=== PATIENT | female | born 1940 | race Caucasian/White ===

== ENCOUNTER 2020-06-16 11:06 | Outpatient (CLI) | payer MEDICARE, SELFPAY ==
[2020-06-16 11:46] LABS: Phosphorus 2.6 mg/dL (2.5-4.5)
[2020-06-16 12:34] LABS: Calcium 10.1 mg/dL (8.5-10.5)
[2020-06-16 13:09] LABS: Parathyroid Hormone 398.2 pg/mL (15-65)
== END 2020-06-16 11:07 | disposition home or self-care (01) ==
PROVIDERS: PCP Family Medicine; Visit Provider Internal Medicine
DX: E21.3 Hyperparathyroidism, unspecified (principal); N18.32 Chronic kidney disease, stage 3b
CPT/HCPCS: 36415; 82310; 83970; 84100; 99204

== ENCOUNTER 2020-11-23 11:40 | Emergency (ER) | payer MEDICARE, SELFPAY ==
[2020-11-23 11:46] VITALS: BP 137/78; PULSE 87; RESP 18; TEMP 36.6; O2SAT 93; BMI 45.4
--- NOTE | 2020-11-23 12:11 | CT_ITS ---
WS: [id number] CT HEAD TECHNIQUE: Noncontrast CT of the head obtained from the skullbase to the vertex. CLINICAL INFORMATION: fall COMPARISON: None. DLP: 805.[address] scans at [facility] use at least one of these dose optimization techniques: automat ed exposure control; mA and/or kV adjustment per patient size (includes targeted exams where dose is matched to clinical indication); or iterative reconstruction. FINDINGS: No evidence of intracranial hemorrhage or mass effect. Ventricular system and basal cisterns are zayas nt. Moderate small vessel changes with moderate parenchymal volume loss. No extra-axial fluid collect ions. No evidence of mass or mass effect. Normal garza-white differentiation. Intracranial vascular ca lcification. Chronic lacunar infarcts in the caudate and bilateral basal ganglia. Paranasal sinuses and mastoid air cells are well aerated. .Normal visualized soft tissues. CT/CT head wo con* [id number] IMPRESSION: 1. No evidence of intracranial hemorrhage or mass effect. 2. Moderate small vessel changes. Moderate parenchymal volume loss. 3. No acute intracranial findings.
--- NOTE | 2020-11-23 12:11 | XR_ITS ---
WS: [id number] Exam: XR sacrum coccyx min 2V [id number] Date/Time of Exam: 11/23/2020 12:11 PM Reason For Exam: fall with tail bone pain No fracture or dislocation noted. Degenerative change of the SI joints. Advanced degenerative disc ch anges and spondylosis noted at L4-L5 , L5-S1 and L3-4. XR/XR sacrum coccyx min 2V [id number] IMPRESSION: 1. No sacrococcygeal fracture or dislocation. 2. Degenerative changes as detailed above.
--- NOTE | 2020-11-23 12:11 | W.ED.FALL ---
HPI - Fall General: Chief Complaint: Fall Stated Complaint: FALL LAST NIGHT Time Seen by Provider: 11/23/20 11:54 History of Present Illness: HPI Narrative: Patient is a 80-year-old female comes to the ED after having a fall. Fall occurred last night. Patient states she was only on the ground for couple minutes. She says she got up in the middle the night to go to the bathroom and she kind of lost her balance fell backwards landing on her tailbone region. Pain is rated as mild and she does not want any pain meds while here in the ED. She denies hitting her head or having any loss of consciousness. Denies any chest pain, abdominal pain, syncopal episode. Patient says she lives at home with one of her children that helps take care of her. Associated symptoms-after fall: Denies abdominal pain, chest pain, headache(s), hematuria or neck pain Review of Systems Narrative: Accidental fall at home Const: Denies: fever(s), chills or fatigue Eyes: Denies: change in vision or eye discomfort ENMT: Denies: throat pain, odynophagia, nasal discharge or nasal congestion Card: Denies: chest pain, palpitations, edema, swelling of feet/ankles, dyspnea on exertion or orthopnea Resp: Denies: dyspnea, productive cough or non-productive cough GI: Denies: abdominal pain, nausea, vomiting, diarrhea, constipation or hematochezia : Denies: flank pain, dysuria or hematuria Musc: Reports: back pain (tailbone pain); Denies: neck pain or extremity swelling Skin/Breast: Denies: rash or new lesions Neuro: Denies: headache(s), numbness in extremities or weakness in extremities PFSH ED PFSH: Medical History Chronic kidney disease Hx of cardiac pacemaker Hx of congestive heart failure Hx of essential hypertension Hx of gout Low back pain Obesity Family History Father Hypertension Mother Hypertension Brother Hypertension Sister Hypertension Social History Smoking and tobacco status: former smoker Alcohol intake: never Physical Exam Const: COMMON NORMALS: no acute distress, patient oriented x3 and alert GENERAL APPEARANCE: cooperative and comfortable NUTRITIONAL APPEARANCE: obese HENMT: COMMON NORMALS: normocephalic HEAD & SCALP: normocephalic MOUTH: Normal oral and palatal mucosa present THROAT: posterior oropharynx normal and uvula midline Neck/C-Spine: COMMON NORMALS: supple GENERAL: Yes normal visual inspection Resp: COMMON NORMALS: normal respiratory effort, No retractions, No use of accessory muscles and clear to auscultation bilaterally AUSCULTATION: clear to auscultation bilaterally Cardio: COMMON NORMALS: regular rate, regular rhythm, S1 normal heart sound present, S2 normal heart sound present, No gallops present (Cardio), No clicks present (Cardio), No murmurs present (Cardio) and Peripheral pulses 2+ throughout RATE: regular rate RHYTHM: regular rhythm HEART SOUNDS: S1 normal heart sound present and S2 normal heart sound present PERIPHERAL PULSES: Peripheral pulses 2+ throughout GI: COMMON NORMALS: Normal to inspection, nondistended, normoactive bowel sounds present, Soft to palpation, non-tender and no masses PALPATION: Yes Soft to palpation : COMMON NORMALS: Yes no CVA tenderness BLADDER/KIDNEY EXAM: Yes no CVA tenderness Back/Pelvis: COMMON NORMALS: no CVA tenderness Extremity: COMMON NORMALS: normal to inspection Neuro: COMMON NORMALS: patient oriented x3, CN's II-XII intact bilaterally, moves all extremities, no focal motor deficits and no sensory deficits noted SENSORIUM/ORIENTATION: Yes alert SENSORY EXAM: Yes extremities (intact) MOTOR EXAM: 5/5 motor strength present throughout Skin: GENERAL SKIN EXAM: dry skin Course Vital Signs: Vital signs: Vital Signs Temperature 97.8 F 11/23/20 11:46 Pulse Rate 65 11/23/20 13:29 Respiratory Rate 16 11/23/20 13:29 Blood Pressure 120/66 11/23/20 13:29 Pulse Oximetry 95 11/23/20 13:29 MDM - Fall MDM Narrative: Medical decision making narrative: Patient is a 80-year-old female who comes to the ED after having a fall. Patient says she got up last night to go to the bathroom and lost her balance and fell backwards. She denies any syncopal episode or loss of consciousness. Her main complaint is tailbone pain. Exam findings unremarkable. CT of head showed no acute findings. X-ray of sacrum and coccyx showed no acute fractures or dislocations. Patient was diagnosed with a fall and discharged home. She is told to follow-up with her PCP in 5 to 7 days for reevaluation. Return to ED precautions given. Patient agreed with plan. Imaging Data^: CT Head: Attestation: I personally reviewed and interpreted this imaging study as follows: Radiologist's impression: [address] [place] [address] CT Scan Report Signed Patient: Anya Powell Unit #: [id number] : 1940 Age/Sex: 80 / F ADM Date: 11/23/20 Loc: ER Room/Bed: Attending Dr: Ordering Provider/Ordering MD: Italo Liu Date of Service: 11/23/20 Procedure(s): CT head wo con* [id number] Accession Number(s): [id number] Report Number: [id number] WS: [id number] CT HEAD TECHNIQUE: Noncontrast CT of the head obtained from the skullbase to the vertex. CLINICAL INFORMATION: fall COMPARISON: None. DLP: 805.[address] scans at [facility] use at least one of these dose optimization techniques: automated exposure control; mA and/or kV adjustment per patient size (includes targeted exams where dose is matched to clinical indication); or iterative reconstruction. FINDINGS: No evidence of intracranial hemorrhage or mass effect. Ventricular system and basal cisterns are patent. Moderate small vessel changes with moderate parenchymal volume loss. No extra-axial fluid collections. No evidence of mass or mass effect. Normal garza-white differentiation. Intracranial vascular calcification. Chronic lacunar infarcts in the caudate and bilateral basal ganglia. Paranasal sinuses and mastoid air cells are well aerated. .Normal visualized soft tissues. CT/CT head wo con* [id number] IMPRESSION: 1. No evidence of intracranial hemorrhage or mass effect. 2. Moderate small vessel changes. Moderate parenchymal volume loss. 3. No acute intracranial findings. Dictated By: Rasheed Hernandez MD Signed By: Rasheed Hernandez MD Signed Date/Time: 11/23/20 1307 DD/ 1304 Other Xray: Attestation: I personally reviewed and interpreted this imaging study as follows: Radiologist's impression: [address] [address] XRay Report Signed Patient: Anya Powell Unit #: [id number] : 1940 Age/Sex: 80 / F ADM Date: 11/23/20 Loc: ER Room/Bed: Attending Dr: Ordering Provider/Ordering MD: Italo Liu Date of Service: 11/23/20 Procedure(s): XR sacrum coccyx min 2V 39959 Accession Number(s): [id number] Report Number: [id number] WS: [id number] Exam: XR sacrum coccyx min 2V [id number] Date/Time of Exam: 11/23/2020 12:11 PM Reason For Exam: fall with tail bone pain No fracture or dislocation noted. Degenerative change of the SI joints. Advanced degenerative disc changes and spondylosis noted at L4-L5 , L5-S1 and L3-4. XR/XR sacrum coccyx min 2V 55229 IMPRESSION: 1. No sacrococcygeal fracture or dislocation. 2. Degenerative changes as detailed above. Dictated By: Scott Ho DO Signed By: Scott Ho DO Signed Date/Time: 11/23/20 1257 DD/ 1253 Discharge Plan Discharge Patient Disposition: Home Clinical Impression: Fall as cause of accidental injury at home as place of occurrence Qualifiers: Encounter type: initial encounter Qualified Code(s): W19.XXXA - Unspecified fall, initial encounter Condition: Stable Prescriptions: No Action potassium chloride 20 mEq tablet,ER particles/crystals PO RF: 0 hydrochlorothiazide 25 mg tablet PO RF: 0 levothyroxine 25 mcg capsule 25 mcg PO DAILY RF: 0 atorvastatin 40 mg tablet 40 mg PO DAILY RF: 0 hydralazine 10 mg tablet 10 mg PO TID RF: 0 furosemide 40 mg tablet 40 mg PO BID RF: 0 carvedilol 25 mg tablet 25 mg PO BID RF: 0 allopurinol 100 mg tablet 200 mg PO DAILY RF: 0 aspirin [Adult Aspirin Regimen] 81 mg tablet,delayed release (DR/EC) 81 mg PO DAILY RF: 0 Discharge Orders: Discharge ED (Routine); Ordered 11/23/20 Ordered By: Italo Liu Referrals: Blanca Cantor MD [Primary Care Provider] - Discharge Diet: Regular Discharge Activity: Increase activity as tolerated Patient Instructions: Fall Prevention for Older Adults (ED), Fall Prevention (ED) Activity Restrictions/Additional Instructions: Follow-up with medical provider as directed in 5 to 7 days for reevaluation. Continue taking all home medications as previous prescribed. Return to the ER or your medical provider if condition worsens. Please read and understand discharge instructions. Thank you for choosing [facility] for your healthcare needs today. Please realize this is an emergency room and that we are providing you with a medical screening exam and this may not be complete and all inclusive of all the testing and or work up that you may need to determine your ailment or severity of your illness. It is very important that you follow up as instructed or that you return to the Emergency Department should you have concerns or if your condition changes or worsens in any way. Coding Level of Care Code ED Chassis Driver for Chg Fwd Exam Comprehensive
[2020-11-23 13:05] VITALS: BP 120/91; PULSE 104; RESP 16; O2SAT 94
[2020-11-23 13:29] VITALS: BP 120/66; PULSE 65; RESP 16; O2SAT 95
== END 2020-11-23 13:29 | disposition home or self-care (01) ==
PROVIDERS: Emergency Provider Physician Assistant; PCP Family Medicine
DX: M53.3 Sacrococcygeal disorders, not elsewhere classified (principal); I13.0 Hypertensive heart and chronic kidney disease with heart failure and stage 1 through stage 4 chronic kidney disease, or unspecified chronic kidney disease; N18.9 Chronic kidney disease, unspecified; I50.9 Heart failure, unspecified; E66.9 Obesity, unspecified; Z68.42 Body mass index [BMI] 45.0-49.9, adult; Z87.891 Personal history of nicotine dependence; Z95.0 Presence of cardiac pacemaker
CPT/HCPCS: 70450; 72220; 99282

== ENCOUNTER 2021-01-06 15:45 | Outpatient (CLI) | payer MEDICARE, SELFPAY ==
--- NOTE | 2021-01-06 15:45 | USCV_ITS ---
Anya Powell Age: 80 Gender: F : 1940 Exam Date: 01/06/2021 16:05 Ordering Phys: Christopher Chavez MD ([email or web address]) Technologist: Shara Brower Exam Location: [facility] Indication: history of CHF BP: / HR: 61 Rhythm: Sinus Technical Quality: Technically difficult study MEASUREMENTS (Male / Female) Normal Values 2D ECHO LV Diastolic Diameter PLAX 4.1 cm 4.2 - 5.9 / 3.9 - 5.3 cm LV Systolic Diameter PLAX 3.0 cm IVS Diastolic Thickness 1.4 cm 0.6 - 1.0 / 0.6 - 0.9 cm IVS Systolic Thickness 1.8 cm LVPW Diastolic Thickness 1.2 cm 0.6 - 1.0 / 0.6 - 0.9 cm LVPW Systolic Thickness 1.8 cm LVOT Diameter 2.0 cm LV Ejection Fraction 2D Teich 53.1 % LV Ejection Fraction MOD 2C 67.6 % LV Ejection Fraction 2C AL 67.1 % LA Diameter 3.9 cm LA Width 4.5 cm LA Height 5.3 cm RA Width 2.3 cm RA Height 4.5 cm Aorta at Sinotubular Diameter 2.9 cm DOPPLER AV Peak Velocity 260.3 cm/s LVOT Peak Velocity 72.0 cm/s AV Area Cont Eq vti 0.9 cm squared AV Area Cont Eq pk 0.9 cm squared MV Peak Velocity 136.0 cm/s MV Area PHT 3.1 cm squared Mitral E to A Ratio 0.6 MV E' Velocity 38.5 cm/s Mitral E to MV E' Ratio 12.6 Mitral E to LV E' Lateral Ratio 16.0 Mitral E to LV E' Septal Ratio 10.4 TR Peak Velocity 168.5 cm/s TR Peak Gradient 11.4 mmHg Right Atrial Pressure 3.0 mmHg Pulmonary Artery Systolic Pressu 14.4 mmHg PV Peak Velocity 86.0 cm/s RV Acceleration Time 0.1 s RV Ejection Time 0.3 s RV AcT/ET 0.3 FINDINGS Left Ventricle Normal left ventricular size and systolic function, EF 62 %. Mild left ventricular hypertrophy. Mild hypokinesia of the basal inferior wall segment Right Ventricle Catheter/pacemaker wire in the right ventricular cavity. Right Atrium Catheter/pacemaker wire in the right atrial cavity. Left Atrium Mildly increased left atrial size. Mitral Valve Moderate mitral annular calcification. Thickened mitral valve. Mild-moderate mitral valve regurgitation. Aortic Valve Thickened aortic valve. Mild aortic valve regurgitation. Mild to moderate aortic valve stenosis with a peak velocity of 2.6 m/s, peak gradient of 28 mmHg with a mean gradient of fourteen. Valve area is calculated to be 0.96 cm squared Tricuspid Valve Mild tricuspid valve regurgitation. Estimated pulmonary artery peak systolic pressure of 15 mmHg-could be an underestimation because of the poor Doppler signals Pulmonic Valve Structurally normal pulmonic valve without significant stenosis. There is no pulmonic regurgitation. Pericardium Trivial pericardial effusion. Aorta Normal ascending aorta dimension. CONCLUSIONS Normal left ventricular size and systolic function, EF 62 %. Mild left ventricular hypertrophy. Mild hypokinesia of the basal inferior wall segment. Mild to moderate aortic valve stenosis with a peak velocity of 2.6 m/s, peak gradient of 28 mmHg with a mean gradient of fourteen. Valve area is calculated to be 0.96 cm squared. Mild aortic valve regurgitation. Mild tricuspid valve regurgitation. Mildly increased left atrial size. Mild-moderate mitral valve regurgitation. Moderate mitral annular calcification. Pacemaker wire in the right atrium right ventricle Trivial pericardial effusion. No previous study is available for comparison. Dr Christopher Chavez MD [facility] (Electronically Signed) Final Date: 07 January 2021 08:51 S
== END 2021-01-06 15:46 | disposition home or self-care (01) ==
LOC: RAD 15:48
PROVIDERS: PCP Family Medicine; Visit Provider Internal Medicine Cardiovascular Disease
DX: I50.9 Heart failure, unspecified (principal); I08.3 Combined rheumatic disorders of mitral, aortic and tricuspid valves
CPT/HCPCS: 93306

== ENCOUNTER 2021-02-08 10:49 | Outpatient (CLI) | payer MEDICARE, SELFPAY ==
--- NOTE | 2021-02-08 11:58 | ECG_ITS ---
[facility] Test Date: 2021-02-08 Pat Name: Anya Powell Department: Room: Gender: Female Transportation Agent: : 1940 Requested By: Christopher Chavez Order Number: [id number] Alecia MD: Christopher Chavez M.D. Interpretive Statements NAME OF STUDY: LEXISCAN SESTAMIBI STRESS TEST INDICATION: Chest Pain, PROCEDURE: At the baseline, the EKG revealed 100% V paced rhythm. The baseline blood pressure was 156/87 mm Hg with a heart rate of 63 beats/min. Lexiscan was infused over a period of 20 seconds. A total of 0.4 milligrams of Lexiscan was infused. The stress phase was continued for a total of 5 minutes. Heart rate at the end of the stress phase was 69 with a blood pressure 128/60. The EKG at the peak infusion revealed no significant changes. Sestamibi was injected 20 seconds after the Lexiscan infusion. Blood pressure at the end of the recovery phase was 122/55 with a heart rate of 67 per minute. CONCLUSION: 1. EKG response to Lexiscan infusion is uninterpretable due to baseline changes 2. No LexiScan induced chest pain or cardiac arrhythmia 3. Normal blood pressure and heart rate response 4. Sestamibi/sestamibi perfusion scan pending; see separate report. Electronically Signed On 02-08-2021 19:46:23 CONSULTING SOFTWARE ENGINEER by Christopher Chavez M.D. [id number]
--- NOTE | 2021-02-08 11:59 | NMCV_ITS ---
NM lucy perf SPECT r/s* [id number] Anya Powell Age: 80 Gender: F : 1940 Exam Date: 02/08/2021 12:27 Ordering Phys: Christopher Chavez MD ([email or web address]) Technologist: MYRTLE Peters Exam Location: [facility] Indications: CHEST PAIN STRESS TEST Please see separate stress test report in [facility] for full findings IMAGE PROTOCOL Rest/Stress 1 Lexiscan Day Radiopharmaceutical Dose (mCi) Administration Site Administered by Rest: Tc-99m IV MYRTLE Hickman Sestamibi Stress:Tc-99m 32.8 IV MYRTLE Peters Sestamilaura Rest: 08-Feb-2021 60 Discovery 630 Stress: 08-Feb-2021 30 Discovery 630 0.4mg Lexiscan. Supine position only as patient was unable to lay prone. SPECT RESULTS Technical Quality: Excellent Raw Data Analysis: Normal Image Corrections: No attenuation or motion correction applied Summed Stress Score: 10 Summed Rest Score: 11 Summed Difference Score: 4 PERFUSION FINDINGS Myocardial perfusion may revealing moderate area of decreased tracer uptake in the basal, mid and apical inferior, mid inferolateral, apical lateral, apical anterior and LV apex. Significant reversibility was noted in the inferior and inferolateral regions. FUNCTIONAL RESULTS (calculated via Gated SPECT) Stress Image LV EF (%): 80 Stress EDV (mL):64 TID: 1 Stress ESV (mL):13 FUNCTIONAL FINDINGS: Segmental wall motion analysis revealing no gross wall motion normalities. IMPRESSIONS 1. Myocardial perfusion imaging revealing small to moderate area of reversible defect in the inferior and inferolateral region, suggestive of ischemia in the distribution of the right coronary artery/circumflex artery. Persistent decreased tracer uptake in the apical segments suggesting myocardial scarring versus attenuation artifacts. 2. Normal LV ejection fraction of 80%. 3. LV wall motion analysis revealing no gross wall motion abnormalities. 4. Normal LV volume. No similar previous studies are available for comparison Dr Christopher Chavez MD [facility] (Electronically Signed) Final Date: 09 February 2021 07:29 S
[2021-02-08 12:02] VITALS: BMI 49.1
[2021-02-08] MEDS: regadenoson 0.4 Mg/5 ml Syringe IVP (13:01)
[2021-02-08 13:28] VITALS: BP 125/55; PULSE 69
== END 2021-02-08 10:50 | disposition home or self-care (01) ==
LOC: CDL 10:50
PROVIDERS: PCP Family Medicine; Visit Provider Internal Medicine Cardiovascular Disease
DX: Z86.79 Personal history of other diseases of the circulatory system (principal); R06.02 Shortness of breath; R07.9 Chest pain, unspecified; R93.1 Abnormal findings on diagnostic imaging of heart and coronary circulation
CPT/HCPCS: 78452; 93017; A9500; J2785

== ENCOUNTER 2021-05-15 12:55 | Emergency (ER) | payer MEDICARE, SELFPAY ==
[2021-05-15 13:05] VITALS: BP 103/74; PULSE 70; RESP 14; TEMP 36.3; O2SAT 95; BMI 43.2
--- NOTE | 2021-05-15 13:06 | XRR_ITS ---
PROCEDURE INFORMATION: Exam: XR Right Hip Exam date and time: 05/15/2021 1:06 PM Age: 80 years old Clinical indication: Hip pain; Right hip TECHNIQUE: Imaging protocol: XR Right hip. Views: 2 or 3 views hip with pelvis when performed. COMPARISON: CR XR sacrum coccyx min 2V [id number] 11/23/2020 12:36 PM FINDINGS: Bones/joints: No fracture, dislocation or subluxation. No periosteal reaction or supsicious bone lesion. No significant osteoarthritis. Soft tissues: No gross soft tissue swelling. Vasculature: Phleboliths in the right pelvis. Atherosclerotic arterial calcifications are noted. XR/XR hip RT 2-3V wo/w pel* [id number] IMPRESSION: No acute fracture is seen.
--- NOTE | 2021-05-15 13:13 | XRR_ITS ---
PROCEDURE INFORMATION: Exam: XR Right Tibia and Fibula Exam date and time: 05/15/2021 1:13 PM Age: 80 years old Clinical indication: Pain; Lower leg; Right TECHNIQUE: Imaging protocol: XR Right tibia and fibula. Views: 2 views. COMPARISON: No relevant prior studies available. FINDINGS: Bones/joints: No fracture, dislocation or subluxation. No periosteal reaction or supsicious bone lesion. Plantar calcaneal spur. Soft tissues: The soft tissues are not well assessed. Vasculature: Atherosclerotic arterial calcifications are seen. XR/XR tibia fibula RT 2V [id number] IMPRESSION: No acute fracture is identified.
--- NOTE | 2021-05-15 13:13 | XRR_ITS ---
PROCEDURE INFORMATION: Exam: XR Lumbosacral Spine Exam date and time: 05/15/2021 1:13 PM Age: 80 years old Clinical indication: Low back pain TECHNIQUE: Imaging protocol: XR of the lumbosacral spine. Views: 2 or 3 views. COMPARISON: CR XR sacrum coccyx min 2V [id number] 11/23/2020 12:36 PM FINDINGS: Bones/joints: There is a mild rightward curvature of the thoracolumbar spine. There are grade 1 retrolistheses of L1, L2, L3 and L4. Moderate to severe degenerative disc disease is seen in the lumbar spine. There is mild wedging of the T10 and T11 vertebral bodies of indeterminate age. The sacroiliac joints are grossly symmetric. The sacrum is partially obscured by overlying bowel gas. Soft tissues: No gross soft tissue swelling. XR/XR lumbar spine 2-3V* [id number] IMPRESSION: 1. Moderate to severe degenerative disc disease is seen in the lumbar spine. 2. There is mild wedging of the T10 and T11 vertebral bodies of indeterminate age. 3. Consider MRI to further assess if clinically warranted.
--- NOTE | 2021-05-15 13:13 | XRR_ITS ---
PROCEDURE INFORMATION: Exam: XR Left Tibia and Fibula Exam date and time: 05/15/2021 1:13 PM Age: 80 years old Clinical indication: Left lower leg pain. TECHNIQUE: Imaging protocol: XR Left tibia and fibula. Views: 2 views. COMPARISON: No relevant prior studies available. FINDINGS: Bones/joints: No fracture, dislocation or subluxation. No periosteal reaction or supsicious bone lesion. Plantar calcaneal spur. Soft tissues: The soft tissues are not well assessed. Vasculature: Atherosclerotic arterial calcifications are seen. XR/XR tibia fibula LT 2V [id number] IMPRESSION: No acute fracture is identified.
[2021-05-15 13:26] VITALS: BP 103/74; PULSE 70; RESP 14; O2SAT 95
--- NOTE | 2021-05-15 13:55 | W.ED.EXTPRO ---
HPI - Extremity Problem General: Chief complaint: Extremity Problem,Nontraumatic Stated complaint: RIGHT HIP PAIN Time Seen by Provider: 05/15/21 13:06 PFSH ED PFSH: Medical History Chronic kidney disease Hx of cardiac pacemaker Hx of congestive heart failure Hx of essential hypertension Hx of gout Low back pain Obesity Family History Father Hypertension Mother Hypertension Brother Hypertension Sister Hypertension Social History Alcohol intake: never Course Vital Signs: Vital signs: Vital Signs Temperature 97.4 F L 05/15/21 13:05 Pulse Rate 70 05/15/21 13:26 Respiratory Rate 14 05/15/21 13:26 Blood Pressure 103/74 05/15/21 13:26 Pulse Oximetry 95 05/15/21 13:26 Discharge Plan Discharge Condition: Stable Prescriptions: No Action allopurinol 100 mg tablet 200 mg PO DAILY 0RF aspirin [Adult Aspirin Regimen] 81 mg tablet,delayed release (DR/EC) 81 mg PO DAILY Qty: 90 3RF atorvastatin 40 mg tablet 40 mg PO DAILY Qty: 90 3RF carvedilol 25 mg tablet 25 mg PO BID Qty: 180 3RF Rx Instructions: must administer with a meal/food furosemide 40 mg tablet 40 mg PO BID Qty: 180 3RF hydralazine 10 mg tablet 10 mg PO TID Qty: 270 3RF hydrochlorothiazide 25 mg tablet 25 mg PO DAILY Qty: 90 3RF potassium chloride 20 mEq tablet,ER particles/crystals 20 meq PO DAILY 0RF levothyroxine 25 mcg tablet 25 mcg PO DAILY Qty: 90 3RF Referrals: Blanca Cantor MD [Primary Care Provider] - Coding Level of Care Code ED Hot End Operator for Fransisco Delgadillo
--- NOTE | 2021-05-15 14:00 | W.ED.GENADLT ---
HPI - General Adult General: Chief complaint: Extremity Problem,Nontraumatic Stated complaint: RIGHT HIP PAIN Time Seen by Provider: 05/15/21 13:06 History of Present Illness: Patient is a 80-year-old female with a history of CKD, CHF, pacemaker, hypertension who presents emergency room with complaints of right hip pain. Patient denies any recent trauma at home. Patient woke up this morning with complaints of right lateral hip pain and bilateral tib-fib pain. Patient denies any fall, injury to the head, or pain elsewhere. No associated chest pain, shortness breath, palpitation or lightheadedness, abdominal pain, nausea vomiting, diarrhea/melenea/or hematochezia. Onset: unknown Duration:ongoing Location:home Severity:moderate Associated symptoms: Deny chest pain, dyspnea, nausea, rash, palpitations or vomiting Review of Systems Const: Denies: fever(s) or chills Eyes: Denies: change in vision ENMT: Denies: mouth pain Card: Denies: chest pain or palpitations Resp: Denies: dyspnea or non-productive cough GI: Denies: abdominal pain, nausea, vomiting or diarrhea : Denies: dysuria Musc: Reports: extremity pain (+L leg pain/+R leg pain, +R hip pain) Skin/Breast: Denies: rash or new lesions Neuro: Denies: weakness in extremities Psych: Reports: other (Normal mood) Mart/Lymph: Denies: easy bruising PFSH ED PFSH: Medical History Chronic kidney disease Hx of cardiac pacemaker Hx of congestive heart failure Hx of essential hypertension Hx of gout Low back pain Obesity Family History Father Hypertension Mother Hypertension Brother Hypertension Sister Hypertension Social History Alcohol intake: never Physical Exam Const: COMMON NORMALS: alert HENMT: COMMON NORMALS: atraumatic HEAD & SCALP: atraumatic MOUTH: moist mucous membranes not abnormal Eye: COMMON NORMALS: EOMs intact bilaterally and conjunctivae normal CONJUNCTIVA: Yes conjunctivae normal Neck/C-Spine: COMMON NORMALS: full ROM and supple Resp: COMMON NORMALS: normal respiratory effort and clear to auscultation bilaterally AUSCULTATION: clear to auscultation bilaterally Cardio: COMMON NORMALS: regular rate RATE: regular rate GI: COMMON NORMALS: Soft to palpation and non-tender PALPATION: Yes Soft to palpation Extremity: COMMON NORMALS: full ROM NARRATIVE EXTREMITY EXAM: + Intact range of motion of the right and left hip, mild tenderness palpation over the right lateral hip, bilateral proximal anterior tib-fib tenderness to palpation, knee range of motion bilaterally intact, cap refill less than 3 seconds in the toes bilaterally, neurovascular exam intact in the lower extremity Neuro: SENSORIUM/ORIENTATION: Yes alert MOTOR EXAM: No Abnormal motor strength present and Other motor observations present (no focal motor deficits) Psych: COMMON NORMALS: speech normal SPEECH: Yes normal speech MOOD & AFFECT: Yes euthymic mood Course Vital Signs: Vital signs: Vital Signs Temperature 97.4 F L 05/15/21 13:05 Pulse Rate 70 05/15/21 13:26 Respiratory Rate 14 05/15/21 13:26 Blood Pressure 103/74 05/15/21 13:26 Pulse Oximetry 95 05/15/21 13:26 MDM - General Adult Medical Decision Making 80-year-old female presenting to the emergency room atraumatic right hip pain and bilateral knee pain. On exam, patient has mild focal tenderness to palpation over the right hip and bilateral proximal anterior mcnulty. Patient has no neurovascular changes. Range of motion of the knees bilaterally and right hip intact. XRays are negative for any acute fractures. Ultrasound not show any signs of DVTs bilaterally. Patient no longer complaints of active pain. I have given patient follow up with our rn case management to be seen by our primary care provider for ongoing pain. Patient aware of a call from our rn case management to schedule for appointment(s) and verbalizes understanding of the importance of following up. Rx: Tylenol, lidocaine patch, and menthol PRN pain Disposition: Discharge. Patient/family counseled regarding diagnostic impression, treatment plan. Patient/family given ED strict return precautions to return for continuation, worsening, or development of new symptoms. Instructed to f/u w/ PCP regarding symptoms today. Patient/family verbalized understanding. Lab Data Radiology Impressions Hip/Pelvis X-Ray 05/15/21 13:06 IMPRESSION: No acute fracture is seen. Lumbar Spine X-Ray 05/15/21 13:13 IMPRESSION: 1. Moderate to severe degenerative disc disease is seen in the lumbar spine. 2. There is mild wedging of the T10 and T11 vertebral bodies of indeterminate age. 3. Consider MRI to further assess if clinically warranted. Tibia/Fibula X-Ray 05/15/21 13:13 IMPRESSION: No acute fracture is identified. Venous Duplex 05/15/21 14:01 IMPRESSION: No evidence of deep vein thrombosis. Imaging Data Other Imaging: Radiologist's impression: [address] [address] XRay Report Signed Patient: AndreAnya Collier Unit #: [id number] : 1940 Age/Sex: 80 / F ADM Date: 05/15/21 Loc: ER Room/Bed: Attending Dr: Ordering Provider/Ordering MD: Neha Hair MD Date of Service: 05/15/21 Procedure(s): XR tibia fibula LT 2V 65175 Accession Number(s): [id number] Report Number: [id number] PROCEDURE INFORMATION: Exam: XR Left Tibia and Fibula Exam date and time: 05/15/2021 1:13 PM Age: 80 years old Clinical indication: Left lower leg pain. TECHNIQUE: Imaging protocol: XR Left tibia and fibula. Views: 2 views. COMPARISON: No relevant prior studies available. FINDINGS: Bones/joints: No fracture, dislocation or subluxation. No periosteal reaction or supsicious bone lesion. Plantar calcaneal spur. Soft tissues: The soft tissues are not well assessed. Vasculature: Atherosclerotic arterial calcifications are seen. XR/XR tibia fibula LT 2V 44019 IMPRESSION: No acute fracture is identified. ? Dictated By: Keith Murillo Signed By: Keith Murillo Signed Date/Time: 05/15/21 1454 DD/ 1313 Anya Powell??80??F??1940 ? Allergy/Adv: Sulfa (Sulfonamide Antibiotics), [seafood] (More??) Close Tibia/Fibula X-Ray (Signed) Keith Murillo - 05/15/21 Tibia/Fibula X-Ray (Signed) Keith Murillo - 05/15/21 Lumbar Spine X-Ray (Signed) Keith Murillo - 05/15/21 Hip and Pelvis X-Ray (Signed) Keith Murillo - 05/15/21 Myocardial Perfusion Scan Nuc Med (Signed) Sheila Chavezjudefayprincess - 02/08/21 Sacrum and Coccyx X-Ray (Signed) Soctt Ho - 11/23/[address] (Signed) Rasheed Hernandez - 11/23/20 Launch?Image [employer] [address] [place] [address] XRay Report Signed Patient: Anya Powell Unit #: [id number] : 1940 Age/Sex: 80 / F ADM Date: 05/15/21 Loc: ER Room/Bed: Attending Dr: Ordering Provider/Ordering MD: Neha Hair MD Date of Service: 05/15/21 Procedure(s): XR tibia fibula RT 2V 35030 Accession Number(s): [id number] Report Number: [id number] PROCEDURE INFORMATION: Exam: XR Right Tibia and Fibula Exam date and time: 05/15/2021 1:13 PM Age: 80 years old Clinical indication: Pain; Lower leg; Right TECHNIQUE: Imaging protocol: XR Right tibia and fibula. Views: 2 views. COMPARISON: No relevant prior studies available. FINDINGS: Bones/joints: No fracture, dislocation or subluxation. No periosteal reaction or supsicious bone lesion. Plantar calcaneal spur. Soft tissues: The soft tissues are not well assessed. Vasculature: Atherosclerotic arterial calcifications are seen. XR/XR tibia fibula RT 2V 81290 IMPRESSION: No acute fracture is identified. ? Dictated By: Keith Murillo Signed By: Keith Murillo Signed Date/Time: 05/15/215 DD/ 1313 [employer] [address] [place] [address]. [place] [address] XRay Report Signed Patient: Anya Powell Unit #: [id number] : 1940 Age/Sex: 80 / F ADM Date: 05/15/21 Loc: ER Room/Bed: Attending Dr: Ordering Provider/Ordering MD: Neha Hair MD Date of Service: 05/15/21 Procedure(s): XR lumbar spine 2-3V* 67491 Accession Number(s): [id number] Report Number: [id number] PROCEDURE INFORMATION: Exam: XR Lumbosacral Spine Exam date and time: 05/15/2021 1:13 PM Age: 80 years old Clinical indication: Low back pain TECHNIQUE: Imaging protocol: XR of the lumbosacral spine. Views: 2 or 3 views. COMPARISON: CR XR sacrum coccyx min 2V 52586 11/23/2020 12:36 PM FINDINGS: Bones/joints: There is a mild rightward curvature of the thoracolumbar spine. There are grade 1 retrolistheses of L1, L2, L3 and L4. Moderate to severe degenerative disc disease is seen in the lumbar spine. There is mild wedging of the T10 and T11 vertebral bodies of indeterminate age. The sacroiliac joints are grossly symmetric. The sacrum is partially obscured by overlying bowel gas. Soft tissues:? No gross soft tissue swelling. XR/XR lumbar spine 2-3V* 45342 IMPRESSION: 1. Moderate to severe degenerative disc disease is seen in the lumbar spine. 2. There is mild wedging of the T10 and T11 vertebral bodies of indeterminate age. 3. Consider MRI to further assess if clinically warranted. ? Dictated By: Keith Murillo Signed By: Keith Murillo Signed Date/Time: 05/15/21 1455 DD/ [address] [address] XRay Report Signed Patient: Anya Powell Unit #: [id number] : 1940 Age/Sex: 80 / F ADM Date: 05/15/21 Loc: ER Room/Bed: Attending Dr: Ordering Provider/Ordering MD: Neha Hair MD Date of Service: 05/15/21 Procedure(s): XR hip RT 2-3V wo/w pel* 90000 Accession Number(s): [id number] Report Number: [id number] PROCEDURE INFORMATION: Exam: XR Right Hip Exam date and time: 05/15/2021 1:06 PM Age: 80 years old Clinical indication: Hip pain; Right hip TECHNIQUE: Imaging protocol: XR Right hip. Views: 2 or 3 views hip with pelvis when performed. COMPARISON: CR XR sacrum coccyx min 2V 14180 11/23/2020 12:36 PM FINDINGS: Bones/joints: No fracture, dislocation or subluxation. No periosteal reaction or supsicious bone lesion. No significant osteoarthritis. Soft tissues: No gross soft tissue swelling. Vasculature: Phleboliths in the right pelvis. Atherosclerotic arterial calcifications are noted. XR/XR hip RT 2-3V wo/w pel* 34685 IMPRESSION: No acute fracture is seen. ? Dictated By: Keith Murillo Signed By: Keith Murillo Signed Date/Time: 05/15/21 1454 DD/ [address] [address] Ultrasound Report Signed Patient: Anya Powell Unit #: [id number] : 1940 Age/Sex: 80 / F ADM Date: 05/15/21 Loc: ER Room/Bed: Attending Dr: Ordering Provider/Ordering MD: Neha Hair MD Date of Service: 05/15/21 Procedure(s): [place] [id number] Accession Number(s): [id number] Report Number: [id number] PROCEDURE INFORMATION: Exam: US Duplex Lower Extremity Veins, Bilateral Exam date and time: 05/15/2021 2:01 PM Age: 80 years old Clinical indication: Pain; Leg, lower; Bilateral; Additional info: Eval for dvts TECHNIQUE: Imaging protocol: Real-time Duplex ultrasound of the bilateral extremities with 2-D garza scale, color Doppler flow and spectral waveform analysis with image documentation. Complete exam focused on the bilateral lower extremity veins. COMPARISON: CR (LOW EXM, ) 05/15/2021 2:01 PM FINDINGS: Right deep veins: Unremarkable. The common femoral, femoral, proximal profunda femoral and popliteal veins are patent without thrombus. Normal Doppler waveforms. Normal compressibility and/or augmentation response.? Right superficial veins: Saphenofemoral junction is patent without thrombus. Left deep veins: Unremarkable. The common femoral, femoral, proximal profunda femoral and popliteal veins are patent without thrombus. Normal Doppler waveforms. Normal compressibility and/or augmentation response.? Left superficial veins: Saphenofemoral junction is patent without thrombus. Soft tissues: Unremarkable. US/[place] [id number] IMPRESSION: No evidence of deep vein thrombosis. ? Dictated By: Marcus Hester MD Signed By: Marcus Hester MD Signed Date/Time: 05/15/21 1552 DD/ 1401 Discharge Plan Discharge Patient Disposition: Home Clinical Impression: Acute hip pain, Leg pain Condition: Stable Prescriptions: New acetaminophen 500 mg tablet 500 mg PO Q6H PRN (Reason: pain) 5 Days Qty: 20 0RF lidocaine 5 % adhesive patch,medicated 1 patch topical DAILY PRN (Reason: pain) 30 Days Qty: 30 0RF Rx Instructions: leave on most painful area for up to 12 hrs Biofreeze (menthol) 5 % gel 1 ea topical BID PRN (Reason: pain) 10 Days Qty: 1 0RF No Action allopurinol 100 mg tablet 200 mg PO DAILY 0RF aspirin [Adult Aspirin Regimen] 81 mg tablet,delayed release (DR/EC) 81 mg PO DAILY Qty: 90 3RF atorvastatin 40 mg tablet 40 mg PO DAILY Qty: 90 3RF carvedilol 25 mg tablet 25 mg PO BID Qty: 180 3RF Rx Instructions: must administer with a meal/food furosemide 40 mg tablet 40 mg PO BID Qty: 180 3RF hydralazine 10 mg tablet 10 mg PO TID Qty: 270 3RF hydrochlorothiazide 25 mg tablet 25 mg PO DAILY Qty: 90 3RF potassium chloride 20 mEq tablet,ER particles/crystals 20 meq PO DAILY 0RF levothyroxine 25 mcg tablet 25 mcg PO DAILY Qty: 90 3RF Discharge Orders: Discharge ED (Routine); Ordered 05/15/21 Ordered By: Neha Hair Referrals: Blanca Cantor MD [Primary Care Provider] - Discharge Diet: Advance as tolerated Discharge Activity: Increase activity as tolerated Patient Instructions: Leg Pain (ED) Activity Restrictions/Additional Instructions: Please follow-up with your primary care provider for further evaluation nation of your leg and hip pain. Come back to the emergency room you have any worsening pain, numbness, difficulty moving the legs, tingling sensation, fever/chill, redness on the legs, or any new or concerning complaints Coding Level of Care Code ED [employer] for [place] Fwd Exam Comprehensive
[2021-05-15] MEDS: acetaminophen 500 mg Tablet 1000 MG PO (14:35)
[2021-05-15 17:21] VITALS: RESP 17
--- NOTE | 2021-05-29 09:52 | DCPLANNER ---
late entry - lining caser had message to speak with patient about a primary care physician, lining caser unable to speak with patient.
== END 2021-05-15 17:26 | disposition home or self-care (01) ==
PROVIDERS: Emergency Provider Emergency Medicine; PCP Family Medicine
DX: M25.551 Pain in right hip (principal); M79.604 Pain in right leg; Z79.82 Long term (current) use of aspirin; Z95.0 Presence of cardiac pacemaker; I11.0 Hypertensive heart disease with heart failure; I50.9 Heart failure, unspecified
CPT/HCPCS: 72100; 73502; 73590; 93970; 99283

== ENCOUNTER 2021-06-13 12:26 | Emergency (ER) | payer MEDICARE, SELFPAY ==
[2021-06-13 12:26] VITALS: BP 115/72; PULSE 88; RESP 20; TEMP 36.6; O2SAT 94; BMI 47.6
--- NOTE | 2021-06-13 12:30 | ED_ITS ---
HPI - General Adult General: Chief complaint: Weakness Stated complaint: BILATERAL HIP PAIN Time Seen by Provider: 06/13/21 12:29 History of Present Illness: Ms Powell is a 80-year-old lady with complex past medical history including CHF, CKD who presents emergency department due to hip pain. She additionally endorses generalized malaise. She apparently was visiting a friend here in town and start developing pain which brought her to the emergency department. Pain is aching and sharp and mildly worse with movement. No distal CMS changes. Patient denies trauma. Overall intensity symptoms is mild to moderate. Course has persisted. No other specific changes in health, exacerbating, or relieving factors. Onset (ago): hour(s) Location: pelvis Severity: moderate Quality: aching and sharp Review of Systems General: Reports: 10 or more systems reviewed and unremarkable except in HPI and below PFSH ED PFSH: Medical History Chronic kidney disease Hx of cardiac pacemaker Hx of congestive heart failure Hx of essential hypertension Hx of gout Low back pain Obesity Family History Father Hypertension Mother Hypertension Brother Hypertension Sister Hypertension Social History Alcohol intake: never Physical Exam Const: COMMON NORMALS: alert GENERAL APPEARANCE: cooperative and well developed NUTRITIONAL APPEARANCE: obese OTHER: Patient is a somewhat poor historian HENMT: COMMON NORMALS: normocephalic and atraumatic HEAD & SCALP: n ormocephalic and atraumatic Eye: COMMON NORMALS: conjunctivae normal CONJUNCTIVA: Yes conjunctivae normal SCLERA: sclerae normal Neck/C-Spine: COMMON NORMALS: supple GENERAL: Yes trachea midline Resp: COMMON NORMALS: normal respiratory effort EFFORT & INSPECTION: Yes able to speak in complete sentences AUSCULTATION: diminished lung sounds Cardio: COMMON NORMALS: regular rate and regular rhythm RATE: regular rate RHYTHM: regular rhythm GI: COMMON NORMALS: Soft to palpation PALPATION: Yes Soft to palpation and No Tenderness to palpation present (GI) PERCUSSION: normal to percussion Extremity: NARRATIVE EXTREMITY EXAM: Mild tenderness with range of motion of right hip GENERAL: No edema Neuro: COMMON NORMALS: moves all extremities SENSORIUM/ORIENTATION: Yes alert and No Orientation impaired Psych: COMMON NORMALS: mental status grossly normal and Normal thought process present THOUGHT PROCESS: Normal thought process present Skin: NARRATIVE SKIN EXAM: Moisture related irritation of left posterior knee. Course ED course: - Patient was seen and evaluated by me at bedside - Patient placed on cardiac monitors, IV access obtained - Initial evaluation notable for exam as above - Labs notable for mild leukocytosis. Metabolic panel with mild evidence of dehydration, hypokalemia. Oral replenishment ordered. Patient does endorse a history of CKD though is unsure of exact baseline creatinine. Delta troponin is negative. Urinalysis not concerning for urinary tract infection. - Imaging notable for no acute finding on hip x-rays - Upon serial reexamination after treatment the patient was improved - Based on patient history, evaluation, labs, and imaging as interpreted the most likely cause of the patient's condition is unclear, she does likely have cellulitis as well as moisture related fungal infection of the posterior left knee. I did discuss other findings including elevated creatinine and need for repeat, patient comfortable with outpatient follow-up. - The results of ED evaluation were discussed with the patient including prescriptions and/or symptomatic cares (if applicable) including appropriate and responsible use, followup plan, and return precautions. The patient verbalized understanding and felt safe for discharge. - Patient discharged in satisfactory condition. Note: Click bubbles or prepopulated mata in note writing are used for assistance with data collection and billing and are inherently more limited than narrative and other text portions of this note. Please use narrative for additional clinical history and defer to narrative/free test for any case of contradictory information. If information appears in only free text or click bubble it should be considered present or absent as reported. Please contact note communications writer for clarifications of clinical information or contradictory information. MDM is a brief summary, contradictory or erroneous seeming information should be clarified and full note should be reviewed. Vital Signs: Vital signs: Vital Signs Temperature 97.8 F 06/13/21 12:26 Pulse Rate 70 06/13/21 18:19 Respiratory Rate 18 06/13/21 18:19 Blood Pressure 142/80 06/13/21 18:19 Pulse Oximetry 96 06/13/21 18:19 MDM - General Adult Medical Decision Making 80-year-old lady presenting with bilateral hip pain. ED evaluation notable for cellulitis on the posterior left knee region. Hypokalemia replenished with oral potassium, laboratory studies including elevated creatinine discussed with peg vizcarra. She is comfortable with discharge for outpatient follow-up. Medical Records I reviewed the patient's medical records. Lab Data I reviewed the patient's lab results. : 06/13/21 15:02 06/13/21 15:02 Radiology Impressions Hip/Pelvis X-Ray 06/13/21 13:26 IMPRESSION: No acute findings. Laboratory Results WBC 13.8 10^3/uL (4.0-10.0) H 06/13/21 15:02 RBC 4.42 10^6/uL (4.1-5.3) 06/13/21 15:02 Hgb 13.3 g/dL (11.5-15.3) 06/13/21 15: Hct 40.1 % (37.0-47.0) 06/13/21 15: MCV 90.7 fl (81-99) 06/13/21 15:02 MCH 30.1 pg (28.0-34.0) 06/13/21 15: MCHC 33.2 g/dL (30.0-36.0) 06/13/21 15: RDW 13.1 % (12.1-15.1) 06/13/21 15: Plt Count 242 10^3/cmm (130-400) 06/13/21 15:02 MPV 9.4 fL (7.4-10.4) 06/13/21 15:02 Neut % (Auto) 75.4 % 06/13/21 15:02 Lymph % (Auto) 13.9 % 06/13/21 15:02 [place] % (Auto) 8.9 % 06/13/21 15:02 Eos % (Auto) 1.2 % 06/13/21 15:02 Baso % (Auto) 0.4 % 06/13/21 15:02 Neut # (Auto) 10.44 10^3/uL (1.8-7.7) H 06/13/21 15:02 Lymph # (Auto) 1.9 10^3/uL (0.8-4.8) 06/13/21 15:02 [place] # (Auto) 1.2 10^3/uL (0.2-0.9) H 06/13/21 15:02 Eos # (Auto) 0.2 10^3/uL (0.0-0.8) 06/13/21 15:02 Baso # (Auto) 0.1 10^3/uL (0.0-0.1) 06/13/21 15:02 Nucleated RBC % (auto) 0 % 06/13/21 15:02 Nucleated RBCs # 0.0 /100WBC 06/13/21 15:02 Sodium 138 mmol/L (136-145) 06/13/21 15:02 Potassium 3.3 mmol/L (3.5-5.1) L 06/13/21 15:02 Chloride 96 mmol/L (98-107) L 06/13/21 15:02 Carbon Dioxide 26 mmol/L (22-29) 06/13/21 15:02 Anion Gap 19.3 (5-19) H 06/13/21 15:02 BUN 69 mg/dL (8-23) H 06/13/21 15:02 Creatinine 1.8 mg/dL (0.5-0.9) H 06/13/21 15:02 GFR Calculation Not Reportable 06/13/21 15:02 Glucose 113 mg/dL (65-115) 06/13/21 15:02 Calculated Osmolality 307 mOsm/kg (285-295) H 06/13/21 15:02 Calcium 11.9 mg/dL (8.5-10.5) H 06/13/21 15:02 Total Bilirubin 0.6 mg/dL (0.15-1.2) 06/13/21 15:02 AST 9 U/L (0-32) 06/13/21 15:02 ALT 10 U/L (0-33) 06/13/21 15:02 Alkaline Phosphatase 147 IU/L (35-105) H 06/13/21 15:02 Troponin T Baseline 36 ng/L (0-10) H 06/13/21 15:02 Troponin T 120 Minute 31.49 ng/L (0-10) H 06/13/21 17:00 Delta Troponin T -4.51 ABS# (0-10) L 06/13/21 17:00 NT-Pro-B Natriuret Pep 825 pg/mL (0-450) H 06/13/21 15:02 Total Protein 8.2 g/dL (6.6-8.7) 06/13/21 15: Albumin 3.7 g/dL (3.5-5.2) 06/13/21 15: Globulin 4.5 g/dL (1.3-4.6) 06/13/21 15: TSH 1.21 uIU/mL (0.27-4.20) 06/13/21 15:02 Urine Color Yellow (Yellow) 06/13/21 15:26 Urine Appearance Sl hazy (CLEAR) 06/13/21 15:26 Urine pH 6 (5-7) 06/13/21 15:26 Ur Specific [place] 1.010 (1.005-1.030) 06/13/21 15:26 Urine Protein Neg (Negative) 06/13/21 15: Urine Glucose (UA) Norm (Normal) 06/13/21 15:26 Urine Ketones Negative (Negative) 06/13/21 15:26 Urine Blood Neg (Negative) 06/13/21 15:26 Urine Nitrate Negative (Negative) 06/13/21 15:26 Urine Bilirubin Neg (Negative) 06/13/21 15:26 Urine Urobilinogen Norm mg/dL (Negative) 06/13/21 15:26 Ur Leukocyte Esterase Negative (Negative) 06/13/21 15:26 Urine RBC None /hpf (0-2) 06/13/21 15:26 Urine WBC None /hpf (0-5) 06/13/21 15:26 Ur Squamous Epith Cells 15-25 /hpf (0-5) H 06/13/21 15:26 Amorphous Sediment Not Reportable 06/13/21 15:26 Urine Bacteria Trace /hpf (NONE) 06/13/21 15:26 Urine Mucus Trace /hpf 06/13/21 15:26 EKG Data EKG 1: I personally reviewed and interpreted this EKG as follows: EKG interpretation date: 06/13/21 EKG interpretation time: 15:54 Interpretation: Twelve-lead EKG shows a regular rhythm at a rate of 77. HI interval 138, QRS duration 193, QTc 476. Left axis deviation. Interpretation: Atrial and ventricular paced rhythm. Computer generated interpretation: Hip/Pelvis X-Ray 06/13/21 13:26 IMPRESSION: No acute findings. Discharge Plan Discharge Patient Disposition: Home Clinical Impression: Cellulitis, Weakness, Creatinine elevation, Leukocytosis, Hypokalemia Condition: Stable Prescriptions: New doxycycline hyclate 100 mg tablet 100 mg PO Q12H 10 Days Qty: 20 0RF nystatin 100,000 unit/gram powder 1 applic topical BID 10 Days Qty: 30 0RF No Action aspirin [Adult Aspirin Regimen] 81 mg tablet,delayed release (DR/EC) 81 mg PO DAILY Qty: 90 3RF furosemide 40 mg tablet 40 mg PO BID Qty: 180 3RF potassium chloride 20 mEq tablet,ER particles/crystals 20 meq PO DAILY 0RF levothyroxine 25 mcg tablet 25 mcg PO DAILY Qty: 90 3RF atorvastatin 40 mg tablet 40 mg PO DAILY Qty: 100 3RF hydralazine 10 mg tablet 10 mg PO TID Qty: 300 3RF carvedilol 25 mg tablet 25 mg PO BID Qty: 200 3RF Rx Instructions: must administer with a meal/food hydrochlorothiazide 25 mg tablet 25 mg PO DAILY Qty: 100 3RF Discharge Orders: Discharge ED (Routine); Ordered 06/13/21 Ordered By: Jah Hughes Other Ambulatory Orders: DME: Wheelchair (Order) Location: None Selected Ordered By: Jah Hughes Referrals: Blanca Cantor MD [Primary Care Provider] - Discharge Diet: Usual diet Discharge Activity: Resume usual activity Patient Instructions: Antifungals (On the skin) (Anti-Fungal Powder, Antifungal,..., Chronic Kidney Disease (ED), Cellulitis (ED), Hip Pain (ED) Activity Restrictions/Additional Instructions: Thank you for visiting the emergency department. You were seen and evaluated f or hip pain as well as generalized weakness. The exact cause of your symptoms is unclear. You do appear to have cellulitis on top of a moisture related/fungal infection behind your left knee. You be given a prescription for topical antifungal and also antibiotics. As discussed, your creatinine is elevated however I am unsure of the exact baseline. Please have repeat labs drawn in 1 week. I will message our field nurse case manager for helping establish with primary care. Please follow-up with a primary care provider. Please return to the emergency department for worsening symptoms or anything else that you are concerned about and feel needs emergency department evaluation. Coding Level of Care Code ED Post Closer for Fransisco Fwjose Exam Comprehensive
--- NOTE | 2021-06-13 13:26 | XRR_ITS ---
PROCEDURE INFORMATION: Exam: XR Right Hip Exam date and time: 06/13/2021 1:26 PM Age: 80 years old Clinical indication: Hip pain; Right hip TECHNIQUE: Imaging protocol: XR Right hip. Views: 2 or 3 views hip with pelvis when performed. COMPARISON: CR (PELVIS, ) 05/15/2021 1:47 PM FINDINGS: Bones/joints: Unremarkable. No acute fracture. Soft tissues: Unremarkable. XR/XR hip RT 2-3V wo/w pel* [id number] IMPRESSION: No acute findings.
--- NOTE | 2021-06-13 14:39 | ECG_ITS ---
[facility] Test Date: 2021-06-13 Pat Name: Anya Powell Department: Room: Gender: Female Upward Bound Director: : 1940 Requested By: Jah Hughes Order Number: [id number] Alecia MD: Hieu Anne M.D. Measurements Intervals [place] Rate: 77 P: 140 NH: 138 QRS: -90 QRSD: 193 T: 81 QT: 445 QTc: 504 Interpretive Statements ELECTRONIC ATRIAL PACEMAKER ELECTRONIC VENTRICULAR PACEMAKER Compared to ECG 06/13/2021 12:56:05 No significant changes Electronically Signed On 06-13-2021 15:50:32 CDT by Hieu Anne M.D. [id number]
[2021-06-13 15:07] LABS: Basophils # 0.1 10^3/uL (0.0-0.1); Basophils % 0.4 %; Eosinophils # 0.2 10^3/uL (0.0-0.8); Eosinophils % 1.2 %; Hematocrit 40.1 % (37.0-47.0); Hemoglobin 13.3 g/dL (11.5-15.3); Lymphocytes # 1.9 10^3/uL (0.8-4.8); Lymphocytes % 13.9 %; Mean Corpuscular HGB Conc 33.2 g/dL (30.0-36.0); Mean Corpuscular Hemoglobin 30.1 pg (28.0-34.0); Mean Corpuscular Volume 90.7 fl (81-99); Mean Platelet Volume 9.4 fL (7.4-10.4); Monocytes # 1.2 10^3/uL (0.2-0.9); Monocytes % 8.9 %; Neutrophils # 10.44 10^3/uL (1.8-7.7); Neutrophils % 75.4 %; Nucleated Red Blood Cells % 0 %; Platelet Count 242 10^3/cmm (130-400); Red Blood Count 4.42 10^6/uL (4.1-5.3); Red Cell Distribution Width 13.1 % (12.1-15.1); White Blood Count 13.8 10^3/uL (4.0-10.0)
[2021-06-13 15:33] LABS: Troponin(5th) Baseline 36 ng/L (0-10)
[2021-06-13 15:39] LABS: Alanine Aminotransferase 10 U/L (0-33); Albumin Level 3.7 g/dL (3.5-5.2); Alkaline Phosphatase 147 IU/L (35-105); Anion Gap 19.3 (5-19); Aspartate Amino Transferase 9 U/L (0-32); Blood Urea Nitrogen 69 mg/dL (8-23); Calcium 11.9 mg/dL (8.5-10.5); Carbon Dioxide 26 mmol/L (22-29); Chloride 96 mmol/L (98-107); Creatinine Clr Calc Pharmacy 39.9237; Globulin 4.5 g/dL (1.3-4.6); Glucose 113 mg/dL (65-115); NT Pro B Type Natriuretic Pept 825 pg/mL (0-450); Osmolality Calculated 307 mOsm/kg (285-295); Potassium 3.3 mmol/L (3.5-5.1); Sodium 138 mmol/L (136-145); Thyroid Stimulating Hormone 1.21 uIU/mL (0.27-4.20); Total Bilirubin 0.6 mg/dL (0.15-1.2); Total Protein 8.2 g/dL (6.6-8.7)
[2021-06-13 15:49] VITALS: BP 122/54; PULSE 71; O2SAT 96
[2021-06-13 16:30] LABS: Bilirubin Urine Neg (Negative); Blood Urine Neg (Negative); Glucose Urine UA Norm (Normal); Ketones Urine Negative (Negative); Leukocyte Esterase Urine Negative (Negative); Nitrate Urine Negative (Negative); Protein Urine Neg (Negative); Urine Appearance SL Hazy (CLEAR); Urine Color Yellow (Yellow); Urobilinogen Urine Norm (Negative); pH Urine 6 (5-7)
[2021-06-13 16:32] LABS: Bacteria Urine TRACE /hpf; Mucus Urine TRACE /hpf; Squamous Epithelial Cell Urine 15-25 /hpf (0-5)
[2021-06-13 16:33] LABS: Add Urine Culture? No
[2021-06-13] MEDS: potassium chloride ER 20 mEq Tablet 40 MEQ PO (17:13)
[2021-06-13 17:18] VITALS: BP 154/102; PULSE 78; RESP 14; O2SAT 96
[2021-06-13 17:36] LABS: Troponin 5 2HR 31.49 ng/L (0-10)
[2021-06-13 17:41] LABS: Troponin 5 2HR Delta -4.51 ABS# (0-10)
[2021-06-13 18:19] VITALS: BP 142/80; PULSE 70; RESP 18; O2SAT 96
--- NOTE | 2021-06-13 18:39 | ECG_ITS ---
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 Measurements Intervals [place] Rate: 67 P: 176 NE: 146 QRS: -90 QRSD: 190 T: 76 QT: 466 QTc: 493 Interpretive Statements ELECTRONIC ATRIAL PACEMAKER ELECTRONIC VENTRICULAR PACEMAKER ABNORMAL RHYTHM ECG No previous ECG available for comparison Electronically Signed On 06-13-2021 15:51:19 CDT by Hieu Anne M.D. [id number]
--- NOTE | 2021-06-23 12:46 | DCPLANNER ---
manager long term care had message to speak with patient about getting established with a primary care physician. manager long term care unable to speak with patient or leave a voicemail at this time.
== END 2021-06-13 18:28 | disposition home or self-care (01) ==
PROVIDERS: Emergency Provider Emergency Medicine; PCP Family Medicine
DX: D72.829 Elevated white blood cell count, unspecified (principal); E87.6 Hypokalemia; R74.8 Abnormal levels of other serum enzymes; R53.1 Weakness; L03.116 Cellulitis of left lower limb; Z79.82 Long term (current) use of aspirin; Z95.0 Presence of cardiac pacemaker; I11.0 Hypertensive heart disease with heart failure; I50.9 Heart failure, unspecified
CPT/HCPCS: 73502; 80053; 81001; 83880; 84443; 84484; 85025; 93005; 99283

== ENCOUNTER 2021-07-02 11:16 | Inpatient (IN) | payer MEDICARE, SELFPAY ==
[2021-07-02 11:18] VITALS: BP 111/83; PULSE 85; RESP 18; TEMP 36.2; O2SAT 96; BMI 60.5
--- NOTE | 2021-07-02 11:23 | W.ED.ABDPA2 ---
HPI - Abdominal Pain General: Chief Complaint: Abdominal Pain Stated Complaint: N/V/D/ ABDOMINAL PAIN Time Seen by Provider: 07/02/21 11:23 History of Present Illness: Ms Powell is a 80-year-old lady with complex past medical history of hypertension, hyperlipidemia, CKD, CHF, aortic valve stenosis who presents to the emergency department due to abdominal pain. She reports symptom onset subacute last night without known specific provoking factors. It was midabdominal with radiation towards the right. She denies associated nausea, vomiting, changes in bowel habits. She did have a bowel movement prior to coming to the emergency department which was normal for her. She otherwise denies signs of systemic illness. Intensity symptoms was moderate. She has difficulty articulating the quality. Course is now improved though only recently. No other specific changes in health, exacerbating, or alleviating factors identified. No history of abdominal surgeries. Onset (ago): hour(s) Pain Consistency: constant Location: Periumbilical, RUQ and RLQ Severity: moderate Migration to: no migration Exacerbating factors: nothing Relieving factors: nothing Review of Systems General: Reports: 10 or more systems reviewed and unremarkable except in HPI and below PFSH ED PFSH: Medical History Aortic valve stenosis Chronic kidney disease Hx of cardiac pacemaker Hx of congestive heart failure Hx of essential hypertension Hx of gout Low back pain Obesity Regional wall motion abnormality of heart Family History Father Hypertension Mother Hypertension Brother Hypertension Sister Hypertension Social History Alcohol intake: never Physical Exam Const: COMMON NORMALS: alert GENERAL APPEARANCE: cooperative, well developed and ill appearing (Chronically); not in distress HENMT: COMMON NORMALS: normocephalic and atraumatic HEAD & SCALP: normocephalic and atraumatic THROAT: posterior oropharynx normal Eye: COMMON NORMALS: conjunctivae normal CONJUNCTIVA: Yes conjunctivae normal SCLERA: sclerae normal Neck/C-Spine: COMMON NORMALS: supple GENERAL: Yes trachea midline Resp: COMMON NORMALS: normal respiratory effort and clear to auscultation bilaterally EFFORT & INSPECTION: Yes able to speak in complete sentences AUSCULTATION: clear to auscultation bilaterally Cardio: COMMON NORMALS: regular rate and regular rhythm RATE: regular rate RHYTHM: regular rhythm GI: COMMON NORMALS: Soft to palpation PALPATION: Yes Soft to palpation, Yes Tenderness to palpation present (GI), No Guarding due to palpation present (GI) and No Rigid due to palpation PERCUSSION: normal to percussion Extremity: GENERAL: Yes normal exam except as noted and No edema Neuro: COMMON NORMALS: moves all extremities SENSORIUM/ORIENTATION: Yes alert and No Orientation impaired OTHER: Chronic disconjugate gaze Psych: COMMON NORMALS: mental status grossly normal and Normal thought process present THOUGHT PROCESS: Normal thought process present Course ED course: - Patient was seen and evaluated by me at bedside - Patient placed on cardiac monitors, IV access obtained - Initial evaluation notable for exam as above - Labs personally interpreted by me. EKG performed at 1151, 1358, 1741 personally reviewed by me and demonstrate paced rhythm. No STEMI. - Fluids given - Labs notable for mild leukocytosis, normal hemoglobin. Metabolic panel with mild evidence of dehydration, there is YUNG compared to prior. Delta troponin is elevated of unclear etiology at 6 hours. Urinalysis not concerning for urinary tract infection given squamous epithelial contamination. -Aspirin given given NSTEMI - Imaging notable for negative head CT. CT abdomen pelvis notable for very mild pericolonic inflammation perhaps reflecting diverticulitis. - Cipro and Flagyl given for colitis. - Upon serial reexamination after treatment the patient was mildly improved - Based on patient history, evaluation, and testing as interpreted the most likely cause of the patient's condition is YUNG, colitis, and NSTEMI - The results of ED evaluation were discussed with the patient including plan for admission due to requirement for level of care not available if discharged to prevent significant worsening/deterioration. - Admitting service was contacted and Dr Reagan with the hospitalist service agreed to admit the patient - Patient was admitted without further deterioration or significant events. Note: Click bubbles or prepopulated mata in note writing are used for assistance with data collection and billing and are inherently more limited than narrative and other text portions of this note. Please use narrative for additional clinical history and defer to narrative/free test for any case of contradictory information. If information appears in only free text or click bubble it should be considered present or absent as reported. Please contact note assembly instructions writer for clarifications of clinical information or contradictory information. MDM is a brief summary, contradictory or erroneous seeming information should be clarified and full note should be reviewed. Vital Signs: Vital signs: Vital Signs Temperature 98 F 07/08/21 08:00 Pulse Rate 72 07/08/21 08:43 Respiratory Rate 18 07/08/21 08:43 Blood Pressure 97/55 07/08/21 08:00 Pulse Oximetry 98 07/08/21 08:43 MDM - Abdominal Pain Medical Decision Making 80-year-old lady with complex past medical history presenting with abdominal pain. Patient found to have perhaps early diverticulitis, YUNG, and NSTEMI likely secondary to underlying YUNG and illness. Admitted for further management. Medical Records I reviewed the patient's medical records. Lab Data I reviewed the patient's lab results. : 07/07/21 09:10 07/07/21 09:10 Labs/Radiology: Radiology Impressions Abdomen/Pelvis CT 07/02/21 11:40 IMPRESSION: 1. Moderate diverticulosis involving the distal colon. There are a few areas of very mild pericolonic inflammation which may be related to early acute or chronic inflammation. Very early acute diverticulitis in the distal colon not excluded. 2. Cholelithiasis without acute cholecystitis. 3. Cardiomegaly. 4. Normal appendix. 5. Widened SI joints with erosions. Consider sacroiliitis causes such as 1psoriatic arthritis. 6. Atrophic kidneys with bilateral low-attenuation masses which are probably cysts but cannot be further characterized on this unenhanced exam. Head CT 07/02/21 19:02 IMPRESSION: 1. No acute intracranial abnormality. 2. Moderate diffuse cerebral atrophy and sequela of chronic small vessel ischemic disease. Pelvis Ultrasound 07/06/21 08:50 IMPRESSION: 1. Abnormal endometrium. Thickened endometrium with a few scattered cystic areas. Endometrial neoplasm needs to be considered as an possible etiology. Recommend hysteroscopy and direct visualization for further evaluate if necessary. 2. Enlarged heterogeneous uterus. 3. Neither ovary identified. Laboratory Results WBC 11.5 10^3/uL (4.0-10.0) H 07/02/21 10:48 RBC 5.01 10^6/uL (4.1-5.3) 07/02/21 10:48 Hgb 14.8 g/dL (11.5-15.3) 07/02/21 10:48 Hct 46.0 % (37.0-47.0) 07/02/21 10:48 MCV 91.8 fl (81-99) 07/02/21 10:48 MCH 29.5 pg (28.0-34.0) 07/02/21 10:48 MCHC 32.2 g/dL (30.0-36.0) 07/02/21 10:48 RDW 13.9 % (12.1-15.1) 07/02/21 10:48 Plt Count 274 10^3/cmm (130-400) 07/02/21 10:48 MPV 10.8 fL (7.4-10.4) H 07/02/21 10:48 Neut % (Auto) 66.2 % 07/02/21 10:48 Lymph % (Auto) 20.4 % 07/02/21 10:48 Tripp % (Auto) 11.3 % 07/02/21 10:48 Eos % (Auto) 1.0 % 07/02/21 10:48 Baso % (Auto) 0.8 % 07/02/21 10:48 Neut # (Auto) 7.64 10^3/uL (1.8-7.7) 07/02/21 10:48 Lymph # (Auto) 2.4 10^3/uL (0.8-4.8) 07/02/21 10:48 Tripp # (Auto) 1.3 10^3/uL (0.2-0.9) H 07/02/21 10:48 Eos # (Auto) 0.1 10^3/uL (0.0-0.8) 07/02/21 10:48 Baso # (Auto) 0.1 10^3/uL (0.0-0.1) 07/02/21 10:48 Nucleated RBC % (auto) 0 % 07/02/21 10:48 Nucleated RBCs # 0.0 /100WBC 07/02/21 10:48 Sodium 142 mmol/L (136-145) 07/02/21 10:48 Potassium 3.6 mmol/L (3.5-5.1) 07/02/21 10:48 Chloride 95 mmol/L (98-107) L 07/02/21 10:48 Carbon Dioxide 27 mmol/L (22-29) 07/02/21 10:48 Anion Gap 23.6 (5-19) H 07/02/21 10:48 BUN 125 mg/dL (8-23) H* D 07/02/21 10:48 Creatinine 3.3 mg/dL (0.5-0.9) H 07/02/21 10:48 GFR Calculation Not Reportable 07/02/21 10:48 Glucose 119 mg/dL (65-115) H 07/02/21 10:48 Calculated Osmolality 335 mOsm/kg (285-295) H 07/02/21 10:48 Calcium 12.2 mg/dL (8.5-10.5) H 07/02/21 10:48 Total Bilirubin 0.6 mg/dL (0.15-1.2) 07/02/21 10:48 AST 23 U/L (0-32) 07/02/21 10:48 ALT 21 U/L (0-33) 07/02/21 10:48 Alkaline Phosphatase 135 IU/L (35-105) H 07/02/21 10:48 Troponin T Baseline 65 ng/L (0-10) H 07/02/21 10:48 Troponin T 120 Minute 66.64 ng/L (0-10) H 07/02/21 12:55 Delta Troponin T 1.64 ABS# (0-10) 07/02/21 12:55 Troponin T Hi Sens 6Hr 79.92 ng/L (0-10) H 07/02/21 16:50 Troponin T Hi Sens 6Hr Delta 14.92 ng/L (0-12) H* 07/02/21 16:50 Total Protein 6.8 g/dL (6.6-8.7) 07/02/21 10:48 Albumin 3.8 g/dL (3.5-5.2) 07/02/21 10:48 Globulin 3.0 g/dL (1.3-4.6) 07/02/21 10:48 Lipase 97 U/L (13-60) H 07/02/21 10:48 Vitamin B12 978 pg/mL (232-1245) 07/02/21 16:50 TSH 1.70 uIU/mL (0.27-4.20) 07/02/21 16:50 Urine Color Yellow (Yellow) 07/02/21 14:20 Urine Appearance Hazy (CLEAR) A 07/02/21 14:20 Urine pH 5 (5-7) 07/02/21 14:[address] 1.020 (1.005-1.030) 07/02/21 14:20 Urine Protein Neg (Negative) 07/02/21 14:20 Urine Glucose (UA) Norm (Normal) 07/02/21 14:20 Urine Ketones Negative (Negative) 07/02/21 14:20 Urine Blood Neg (Negative) 07/02/21 14:20 Urine Nitrate Negative (Negative) 07/02/21 14:20 Urine Bilirubin Neg (Negative) 07/02/21 14:20 Urine Urobilinogen Neg mg/dL (Negative) 07/02/21 14:20 Ur Leukocyte Esterase Negative (Negative) 07/02/21 14:20 Urine RBC Rare /hpf (0-2) 07/02/21 14:20 Urine WBC Rare /hpf (0-5) 07/02/21 14:20 Ur Squamous Epith Cells 5-10 /hpf (0-5) H 07/02/21 14:20 Amorphous Sediment Not Reportable 07/02/21 14:20 Urine Bacteria Trace /hpf (NONE) 07/02/21 14:20 Urine Mucus 2+ /hpf 07/02/21 14:20 Discharge Plan Discharge Patient Disposition: Placed in Observation Admit Provider: oRc Reagan Clinical Impression: Acute kidney injury superimposed on chronic kidney disease, Colitis, Acute non-ST elevation myocardial infarction (NSTEMI) Discharge Diet: Diabetic Coding Level of Care Code ED Field Account Manager for Chg Fwd Exam Comprehensive
--- NOTE | 2021-07-02 11:40 | CT_ITS ---
WS: [id number] CT ABDOMEN AND PELVIS NONCONTRAST HISTORY: mid abdominal pain TECHNIQUE: Imaging performed through the abdomen and pelvis. Coronal and sagittal reformats are submi tted. All CT scans at [facility] use at least one of these dose optimization techniques: auto mated exposure control; mA and/or kV adjustment per patient size (includes targeted exams where dose is matched to clinical indication); or iterative reconstruction. DLP: 1664.28 mGy.cm COMPARISON: None available. Lower thorax: Lung bases are clear. Moderate enlargement of the heart. Pacer wires are noted in the h eart. Liver: Normal size liver. No mass or bile duct dilatation. Gallbladder: Normally distended gallbladder with numerous stones in the lumen. No bile duct dilatatio n appreciated on this unenhanced study. Pancreas: Normal size and attenuation. Normal pancreatic duct. No pancreatitis or mass. Spleen: Normal. Adrenal glands: Normal. No mass. Right kidney: Mild diffuse cortical thinning and atrophy with scattered low-attenuation nodule which cannot be further characterized. Left kidney: Mild atrophy with low attenuation nodules. No obstruction. Aorta: Moderate to severe atherosclerosis abdominal aorta. No aneurysm. Atherosclerosis continues int o the common iliac arteries. Small pseudoaneurysm or dissection is calcified along the LEFT lateral i nfrarenal aorta. This is not acute. No free fluid, intraperitoneal air or significant lymphadenopathy. GI tract: Nondistended stomach. No small bowel obstruction. No colon obstruction. Normal appendix. Nu merous diverticula in the distal colon. There is some very mild inflammatory changes surrounding the descending colon no free fluid. No adenopathy. Abdominal wall: Negative. No hernia. Pelvis: Uterus appears slightly elongated. Urinary bladder is well distended. No pelvic mass. Focal c alcification in the RIGHT adnexa is probably related to the ovary. Osseous structures: Advanced degenerative disc disease in the lumbar spine. No acute fractures. Widen ing and erosion of the SI joints bilaterally, RIGHT greater than LEFT. CT/CT abdomen pelvis wo con [id number] IMPRESSION: 1. Moderate diverticulosis involving the distal colon. There are a few areas o f very mild pericolonic inflammation which may be related to early acute or chr onic inflammation. Very early acute diverticulitis in the distal colon not excl uded. 2. Cholelithiasis without acute cholecystitis. 3. Cardiomegaly. 4. Normal appendix. 5. Widened SI joints with erosions. Consider sacroiliitis causes such as 1psor iatic arthritis. 6. Atrophic kidneys with bilateral low-attenuation masses which are probably c ysts but cannot be further characterized on this unenhanced exam.
--- NOTE | 2021-07-02 11:43 | ECG_ITS ---
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 Measurements Intervals [place] Rate: 66 P: [place]: QRS: 270 QRSD: 189 T: 84 QT: 484 QTc: 507 Interpretive Statements ELECTRONIC VENTRICULAR PACEMAKER ABNORMAL RHYTHM ECG Compared to ECG 06/13/2021 15:44:07 Atrial-paced complex(es) or rhythm no longer present Electronically Signed On 07-02-2021 13:40:37 CDT by Christopher Chavez M.D. [id number]
[2021-07-02 11:49] LABS: Basophils # 0.1 10^3/uL (0.0-0.1); Basophils % 0.8 %; Eosinophils # 0.1 10^3/uL (0.0-0.8); Hemoglobin 14.8 g/dL (11.5-15.3); Lymphocytes # 2.4 10^3/uL (0.8-4.8); Lymphocytes % 20.4 %; Mean Corpuscular HGB Conc 32.2 g/dL (30.0-36.0); Mean Corpuscular Hemoglobin 29.5 pg (28.0-34.0); Mean Corpuscular Volume 91.8 fl (81-99); Mean Platelet Volume 10.8 fL (7.4-10.4); Monocytes # 1.3 10^3/uL (0.2-0.9); Monocytes % 11.3 %; Neutrophils # 7.64 10^3/uL (1.8-7.7); Neutrophils % 66.2 %; Nucleated Red Blood Cells % 0 %; Platelet Count 274 10^3/cmm (130-400); Red Blood Count 5.01 10^6/uL (4.1-5.3); Red Cell Distribution Width 13.9 % (12.1-15.1); White Blood Count 11.5 10^3/uL (4.0-10.0)
[2021-07-02 12:01] LABS: Alanine Aminotransferase 21 U/L (0-33); Albumin Level 3.8 g/dL (3.5-5.2); Alkaline Phosphatase 135 IU/L (35-105); Anion Gap 23.6 (5-19); Aspartate Amino Transferase 23 U/L (0-32); Calcium 12.2 mg/dL (8.5-10.5); Carbon Dioxide 27 mmol/L (22-29); Chloride 95 mmol/L (98-107); Glucose 119 mg/dL (65-115); Lipase 97 U/L (13-60); Potassium 3.6 mmol/L (3.5-5.1); Sodium 142 mmol/L (136-145); Total Bilirubin 0.6 mg/dL (0.15-1.2); Total Protein 6.8 g/dL (6.6-8.7)
[2021-07-02 12:02] LABS: Troponin(5th) Baseline 65 ng/L (0-10)
[2021-07-02 12:07] LABS: Osmolality Calculated 335 mOsm/kg (285-295)
[2021-07-02 12:08] LABS: Blood Urea Nitrogen 125 mg/dL (8-23)
[2021-07-02 13:23] VITALS: BP 137/87; PULSE 61; RESP 16; O2SAT 95
[2021-07-02 13:23] LABS: Troponin 5 2HR 66.64 ng/L (0-10)
[2021-07-02 13:26] LABS: Troponin 5 2HR Delta 1.64 ABS# (0-10)
--- NOTE | 2021-07-02 13:43 | ECG_ITS ---
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 Measurements Intervals [place] Rate: 69 P: [place]: QRS: -89 QRSD: 196 T: 89 QT: 489 QTc: 526 Interpretive Statements ELECTRONIC VENTRICULAR PACEMAKER ABNORMAL RHYTHM ECG Compared to ECG 07/02/2021 11:51:49 No significant changes Electronically Signed On 07-02-2021 13:59:46 CDT by Christopher Chavez M.D. [email or web address] centerC [id number]
[2021-07-02 14:56] LABS: Add Urine Microscopic? YES; Bilirubin Urine Neg (Negative); Blood Urine Neg (Negative); Glucose Urine UA Norm (Normal); Ketones Urine Negative (Negative); Leukocyte Esterase Urine Negative (Negative); Nitrate Urine Negative (Negative); Protein Urine Neg (Negative); Urine Appearance Hazy (CLEAR); Urine Color Yellow (Yellow); Urobilinogen Urine Neg (Negative); pH Urine 5 (5-7)
[2021-07-02 14:57] LABS: Add Urine Culture? No; Bacteria Urine TRACE /hpf; Mucus Urine 2+ /hpf; RBC Urine RARE /hpf (0-2); WBC Urine RARE /hpf (0-5)
[2021-07-02 15:00] VITALS: BP 132/79; PULSE 88; RESP 20; O2SAT 96
[2021-07-02 16:28] VITALS: BP 130/76; PULSE 66; RESP 18; O2SAT 98
[2021-07-02 17:14] LABS: Troponin 5 6HR 79.92 ng/L (0-10)
--- NOTE | 2021-07-02 17:15 | PC.NURSE ---
Pt incontinent. Pt cleaned up with new sheets and a depend. Pt appears to be bleeding from vagina. Dr. Hughes notified.
[2021-07-02 17:17] LABS: Troponin 5 6HR Delta 14.92 ng/L (0-12)
[2021-07-02 17:30] VITALS: BP 111/67; PULSE 80; RESP 18; O2SAT 97
[2021-07-02] MEDS: aspirin 81 mg Chew Tablet 324 MG PO (17:40)
[2021-07-02] MEDS: sodium chloride 0.9% 1,000 ML 150 ML IV (17:40)
[2021-07-02] MEDS: cefTRIAXone 1,000 MG in sodium chloride 0.9% (plus) 50 ML 100 MG IV (17:40)
--- NOTE | 2021-07-02 17:43 | ECG_ITS ---
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 Measurements Intervals [place] Rate: 64 P: [place]: QRS: -89 QRSD: 189 T: 88 QT: 494 QTc: 512 Interpretive Statements ELECTRONIC VENTRICULAR PACEMAKER ABNORMAL RHYTHM ECG Compared to ECG 07/02/2021 13:54:57 No significant changes Electronically Signed On 07-03-2021 11:36:24 CDT by Ruben Johnson M.D. [id number]
[2021-07-02] MEDS: metroNIDAZOLE IV 500 MG/100 ML PREMIX 100 MG IV (18:27)
--- NOTE | 2021-07-02 18:47 | PM.HP ---
Providers/Chief Complaint Primary Care Provider: Blanca Cantor MD Chief Complaint: N/V/D/ ABDOMINAL PAIN History of Present Illness Anya Powell is a 80 year old female post having that she is not sure about why she was sent to the hospital. I called her daughter to get the report. Daughter stating that she moved in 2 years ago and she is not sure about her previous medical history other than that that she has a pacemaker. Daughter is stating that for last 6 months she has been declining gradually, she has been suffering from memory loss, sometimes the house she wants to know where the bathroom is, lately she has been just staying in her couch and would defecate and urinate there. She is losing motivation to get up. She is mostly watching television in the TV lounge. She has not complained of any chest pain shortness of breath, fever or diarrhea. Lately she is complaining of abdominal pain. She has suffered from recurrent falls as well, her daughter and son-in-law was helping her out for most of the time in order to motivate her to ambulate. She still debilitated and deconditioned now they have to use a wheelchair to assist her. Her brother is suffering from dementia. Daughter stating that she does not have any living will however should be treated as full code. In the ER diagnostics showed dehydration, acute on chronic kidney disease, I have requested CT head, B12, TSH, urinalysis, started Zosyn for colitis Review of Systems General: Reports: ROS unobtainable due to medical condition (Hypoactive delirium) Medications/Allergies Home Medications Medication Instructions Recorded Confirmed Last Taken Type aspirin 81 mg tablet,delayed 81 mg PO DAILY #90 tab 03/04/21 07/02/21 07/02/21 Rx release (Adult Aspirin Regimen) furosemide 40 mg tablet 40 mg PO BID #180 tab 03/04/21 07/02/21 07/02/21 Rx potassium chloride 20 mEq 20 meq PO DAILY tab 03/04/21 07/02/21 07/02/21 History tablet,extended release(part/cryst) levothyroxine 25 mcg tablet 25 mcg PO DAILY #90 tab 03/05/21 07/02/21 07/02/21 Rx atorvastatin 40 mg tablet 40 mg PO DAILY #100 tab 05/17/21 07/02/21 07/02/21 Rx carvedilol 25 mg tablet 25 mg PO BID #200 tab 05/17/21 07/02/21 07/02/21 Rx hydralazine 10 mg tablet 10 mg PO TID #300 tab 05/17/21 07/02/21 07/02/21 Rx hydrochlorothiazide 25 mg tablet 25 mg PO DAILY #100 tab 05/17/21 07/02/21 07/02/21 Rx Allergies Allergy/AdvReac Type Severity Reaction Status Date / Time Sulfa (Sulfonamide Allergy unknown Verified 07/02/21 12:14 Antibiotics) seafood Allergy unknown Uncoded 02/10/21 09:53 PFSH Acute PFSH: Medical History Aortic valve stenosis Chronic kidney disease Hx of cardiac pacemaker Hx of congestive heart failure Hx of essential hypertension Hx of gout Low back pain Obesity Regional wall motion abnormality of heart Family History Father Hypertension Mother Hypertension Brother Hypertension Sister Hypertension Social History Alcohol intake: never Vitals/I&O/Wt Last Vital Signs Temp 97.1 F L 07/02/21 11:18 Pulse 80 07/02/21 17:30 Resp 18 07/02/21 17:30 BP 111/67 07/02/21 17:30 Pulse Ox 97 07/02/21 17:30 Weight last 48 hrs Weight 127.006 kg Physical Exam Narrative: Pleasant cooperative female She is not sure why she is in the hospital Able to follow commands Able to answer simple questions Squint noted I am not able to appreciate focal deficits She is moving all of her extremities Looks dehydrated Wrinkled skin Dry mucous membranes Abdomen is soft and nondistended, with obesity Saturating well on room air Hemodynamically stable Data : 07/02/21 10:48 07/02/21 10:48 A&P Assessment and plan (1) Acute kidney injury superimposed on chronic kidney disease: Status: Acute (2) Colitis: Status: Acute Plan Hypoactive delirium with possible underlying dementia She has been suffering from memory loss Personality change Losing motivation to get up and walk around Multiple falls We will check B12, TSH Urinalysis CT head She has been diagnosed with colitis without sepsis I will keep her on IV fluids Start antibiotics She is full code Cardiac consistent carb diet PT evaluation Daughter is asking for [facility] psych placement We will update casework manager in the morning For now for her delirium we will try to find out reversible causes, but my suspicion is high for dementia, family history positive Attestations Medical Necessity Statement*: Considering delirium and underlying possible dementia she will need work-up and will need assistance for appropriate disposition, I am anticipating she will spend more than 2 midnights in the hospital Time Spent in Patient Care: 40mins Coding Level of Care Code Acute Strategic Account Executive for [place] Fwd Diagnoses Acute kidney injury superimposed on chronic kidney disease N17.9; N18.9 Colitis K52.9
--- NOTE | 2021-07-02 19:02 | CTR_ITS ---
PROCEDURE INFORMATION: Exam: CT Head Without Contrast Exam date and time: 07/02/2021 7:26 PM Age: 80 years old Clinical indication: Altered mental status/memory loss; Confusion or disorientation; Patient HX: HX of dementia w worsening AMS TECHNIQUE: Imaging protocol: Computed tomography of the head without contrast. Radiation optimization: All CT scans at this facility use at least one of these dose optimization techniques: automated exposure control; mA and/or kV adjustment per patient size (includes targeted exams where dose is matched to clinical indication); or iterative reconstruction. COMPARISON: CT head wo con* [id number] 11/23/2020 12:52 PM RADIATION DOSE METRICS: Total DLP (mGy-cm): 771.06 FINDINGS: Brain: No hemorrhage. Moderate diffuse cerebral atrophy and sequela of chronic small vessel ischemic disease. No mass effect. Cerebral ventricles: No ventriculomegaly. Paranasal sinuses: Visualized sinuses are unremarkable. No fluid levels. Mastoid air cells: Visualized mastoid air cells are well aerated. Bones/joints: Unremarkable. No acute fracture. Soft tissues: Unremarkable. CT/CT head wo con* [id number] IMPRESSION: 1. No acute intracranial abnormality. 2. Moderate diffuse cerebral atrophy and sequela of chronic small vessel ischemic disease.
[2021-07-02 19:47] LABS: Vitamin B12 978 pg/mL (232-1245)
[2021-07-02 20:00] VITALS: BP 124/67; PULSE 76; RESP 18; O2SAT 96
[2021-07-02 21:47] VITALS: BMI 60.5
[2021-07-02] MEDS: hyDRALAzine 10 mg Tablet PO (22:39)
[2021-07-02] MEDS: sodium chloride 0.9% 1,000 ML 75 ML IV (22:40)
[2021-07-02] MEDS: piperacillin-tazobactam 3.375 GM in sodium chloride 0.9% (plus) 50 ML IV (23:15)
[2021-07-02 23:29] LABS: Charge for UA Resulting for Rev
[2021-07-02 23:40] LABS: Bilirubin Urine 1+ (Negative); Blood Urine 3+ (Negative); Glucose Urine UA Norm (Normal); Ketones Urine Negative (Negative); Leukocyte Esterase Urine 1+ (Negative); Nitrate Urine Negative (Negative); Protein Urine 1+ (Negative); Urine Color Yellow (Yellow); Urobilinogen Urine Norm (Negative); pH Urine 5 (5-7)
[2021-07-02 23:44] LABS: Add Urine Microscopic? YES
[2021-07-03] VITALS (8 sets, daily range): BP systolic 99–126; BP diastolic 47–68; PULSE 60–72; RESP 15–19; TEMP 36.2; O2SAT 94–98
[2021-07-03 05:39] LABS: Basophils # 0.1 10^3/uL (0.0-0.1); Basophils % 0.8 %; Eosinophils # 0.1 10^3/uL (0.0-0.8); Eosinophils % 0.9 %; Hematocrit 43.6 % (37.0-47.0); Hemoglobin 13.8 g/dL (11.5-15.3); Lymphocytes # 1.9 10^3/uL (0.8-4.8); Lymphocytes % 17.5 %; Mean Corpuscular HGB Conc 31.7 g/dL (30.0-36.0); Mean Corpuscular Hemoglobin 29.3 pg (28.0-34.0); Mean Corpuscular Volume 92.6 fl (81-99); Mean Platelet Volume 10.4 fL (7.4-10.4); Monocytes # 1.2 10^3/uL (0.2-0.9); Monocytes % 10.5 %; Neutrophils # 7.66 10^3/uL (1.8-7.7); Nucleated Red Blood Cells % 0 %; Platelet Count 240 10^3/cmm (130-400); Red Blood Count 4.71 10^6/uL (4.1-5.3); Red Cell Distribution Width 13.8 % (12.1-15.1); White Blood Count 10.9 10^3/uL (4.0-10.0)
[2021-07-03 06:01] LABS: Anion Gap 18.3 (5-19); C Reactive Protein 9.6 mg/L (0.0-4.9); Calcium 11.2 mg/dL (8.5-10.5); Carbon Dioxide 23 mmol/L (22-29); Chloride 98 mmol/L (98-107); Glucose 105 mg/dL (65-115); Magnesium 1.8 mg/dL (1.7-2.3); Potassium 3.3 mmol/L (3.5-5.1); Sodium 136 mmol/L (136-145)
[2021-07-03 06:07] LABS: Osmolality Calculated 319 mOsm/kg (285-295)
[2021-07-03 06:10] LABS: Blood Urea Nitrogen 116 mg/dL (8-23)
[2021-07-03 07:19] LABS: Glucose Point of Care 92 mg/dL (70-110)
[2021-07-03] MEDS: levothyroxine 25 mcg Tablet PO (09:16)
[2021-07-03] MEDS: carvedilol 25 mg Tablet PO ×2 (09:16→18:12)
[2021-07-03] MEDS: hyDRALAzine 10 mg Tablet PO ×2 (09:16→20:49)
[2021-07-03] MEDS: aspirin 81 mg EC Tablet PO (09:16)
[2021-07-03] MEDS: atorvastatin 40 mg Tablet PO (09:17)
[2021-07-03] MEDS: piperacillin-tazobactam 3.375 GM in sodium chloride 0.9% (plus) 50 ML IV ×2 (11:31→22:11)
[2021-07-03] MEDS: potassium chloride ER 20 mEq Tablet 40 MEQ PO (11:31)
[2021-07-03 11:46] LABS: Glucose Point of Care 135 mg/dL (70-110)
--- NOTE | 2021-07-03 12:16 | PM.PN ---
Subjective Subjective: Patient this morning is awake and alert No new complaints Hemodynamically stable Afebrile YUNG improving Patient wanted to have a bowel movement this morning She worked with PT as well TSH B12 normal No signs of UTI No active chest pain or shortness of breath She is on room air Creatinine 3.0 Potassium 3.3 Continue IV fluids, potassium repleted, updated pillowcase cleaner, will need to touch base with her daughter to find appropriate placement Vitals/I&O/Wt Last Vital Signs Temp 97.1 F L 07/02/21 11:18 Pulse 64 07/03/21 07:47 Resp 16 07/03/21 07:47 BP 124/67 07/02/21 20:00 Pulse Ox 96 07/03/21 07:47 07/02/21 07/03/21 07/03/21 22:59 06:59 14:59 Intake Total 250 / 250 1342.5 / 1592.5 517.5 / 517.5 Output Total 150 / 150 200 / 200 Balance 100 / 100 1342.5 / 1442.5 317.5 / 317.5 Weight last 48 hrs Weight 127.006 kg Weight 127.006 kg Physical Exam Narrative: Patient is in right lateral position Able to answer my questions She was able to meet her name, date of and name of her daughter She is much more awake and alert today as compared to yesterday She is able to work with physical therapist to some extent Clinically does not look fluid overloaded Abdomen is soft No audible stridor or wheezing No signs of edema of legs Nonfocal neuro exam Squint noticed Data : 07/03/21 05:30 07/03/21 05:30 Micro: Microbiology 07/02/21 22:45 Stool Lactoferrin - Final Stool A&P Assessment and plan (1) Acute kidney injury superimposed on chronic kidney disease: Status: Acute (2) Colitis: Status: Acute (3) Hx of essential hypertension: Status: Acute (4) Hx of congestive heart failure: Status: Acute (5) Hx of cardiac pacemaker: Status: Acute (6) Hyperparathyroidism: Status: Acute Plan Hypoactive delirium with possible underlying dementia Hypercalcemia could be the culprit Continue IV fluids Check PTH We will need outpatient endocrinology follow-up Nonfocal neuro exam no signs of UTI, normal TSH and B12 Colitis: Continue antibiotics Rule out C. difficile, continue Zosyn Generalized weakness: To work with physical therapy today, will need SNF, pillowcase cleaner updated Hypertensive urgency: Blood pressure is stable today, Acute on chronic kidney disease: Creatinine improving with IV fluids Signs of dehydration improving Patient is full code Cardiac consistent carb diet Continue with thyroxine for hypothyroidism Hypokalemia: Repleted Can be transferred out of [facility] to [facility] if needed Attestations Medical Necessity Statement*: Continue medical management Time Spent in Patient Care: 20min Coding Level of Care Code Acute Clam Grower for g Fwd Diagnoses Acute kidney injury superimposed on chronic kidney disease N17.9; N18.9 Colitis K52.9 Hx of essential hypertension Z86.79 Hx of congestive heart failure Z86.79 Hx of cardiac pacemaker Z95.0 Hyperparathyroidism E21.3
[2021-07-03 13:05] LABS: Parathyroid Hormone 532.7 pg/mL (15-65)
[2021-07-03 16:41] LABS: Glucose Point of Care 103 mg/dL (70-110)
[2021-07-03] MEDS: sodium chloride 0.9% 1,000 ML 75 ML IV (16:41)
--- NOTE | 2021-07-03 19:25 | PC.NURSE ---
Received report from MARY Shaikh. Patient resting in bed. Denies pain or needs presently. Patient is confused at times. No distress observed. Will continue to monitor.
[2021-07-03 20:19] LABS: Glucose Point of Care 121 mg/dL (70-110)
[2021-07-03] MEDS: phenyleph-mineral oil-petrolat Oint 28 gm 1 APPLIC PR (22:29)
[2021-07-04] VITALS (10 sets, daily range): BP systolic 96–134; BP diastolic 43–63; PULSE 60–79; RESP 15–19; TEMP 36.5–36.6; O2SAT 91–95
[2021-07-04] MEDS: acetaminophen 325 mg Tablet 650 MG PO ×2 (01:20→08:37)
[2021-07-04 05:24] LABS: Basophils # 0.1 10^3/uL (0.0-0.1); Basophils % 0.8 %; Eosinophils # 0.1 10^3/uL (0.0-0.8); Eosinophils % 1.3 %; Hematocrit 38.7 % (37.0-47.0); Hemoglobin 12.3 g/dL (11.5-15.3); Lymphocytes # 1.5 10^3/uL (0.8-4.8); Lymphocytes % 15.2 %; Mean Corpuscular HGB Conc 31.8 g/dL (30.0-36.0); Mean Corpuscular Hemoglobin 29.4 pg (28.0-34.0); Mean Corpuscular Volume 92.6 fl (81-99); Mean Platelet Volume 10.9 fL (7.4-10.4); Monocytes # 0.9 10^3/uL (0.2-0.9); Monocytes % 9.3 %; Neutrophils # 7.37 10^3/uL (1.8-7.7); Neutrophils % 73.2 %; Nucleated Red Blood Cells % 0 %; Platelet Count 186 10^3/cmm (130-400); Red Blood Count 4.18 10^6/uL (4.1-5.3); Red Cell Distribution Width 13.9 % (12.1-15.1); White Blood Count 10.1 10^3/uL (4.0-10.0)
[2021-07-04 05:45] LABS: Anion Gap 17.1 (5-19); Calcium 10.8 mg/dL (8.5-10.5); Carbon Dioxide 24 mmol/L (22-29); Chloride 102 mmol/L (98-107); Glucose 100 mg/dL (65-115); Magnesium 1.8 mg/dL (1.7-2.3); Osmolality Calculated 325 mOsm/kg (285-295); Potassium 3.1 mmol/L (3.5-5.1); Sodium 140 mmol/L (136-145)
[2021-07-04 05:47] LABS: Blood Urea Nitrogen 110 mg/dL (8-23)
[2021-07-04 06:52] LABS: Glucose Point of Care 99 mg/dL (70-110)
[2021-07-04] MEDS: atorvastatin 40 mg Tablet PO (08:36)
[2021-07-04] MEDS: potassium chloride ER 20 mEq Tablet 40 MEQ PO (08:36)
[2021-07-04] MEDS: aspirin 81 mg EC Tablet PO (08:36)
[2021-07-04] MEDS: levothyroxine 25 mcg Tablet PO (08:37)
[2021-07-04] MEDS: calcitonin,salmon 200 unit/mL SDV 2mL 300 UNIT SUBCUT ×2 (10:11→22:09)
[2021-07-04] MEDS: piperacillin-tazobactam 3.375 GM in sodium chloride 0.9% (plus) 50 ML IV ×2 (10:17→22:50)
[2021-07-04 11:13] LABS: Glucose Point of Care 120 mg/dL (70-110)
--- NOTE | 2021-07-04 11:47 | PM.PN ---
Subjective Subjective: This morning patient is awake and alert, I did discuss with her that her looking for nursing in place, she did not refuse going to [facility] when I told her that the daughter might not be able to take care of you at home and she will need outpatient endocrinology appointment for her hypercalcemia hyperparathyroidism Added calcitonin today Potassium repleted Creatinine 3.0 Patient wanted to use bedside commode, nurse updated She was complaining of back pain and neck pain, She has been afebrile Cdiff panel is negative Colitis: Improving Blood pressure is soft Held antihypertensive regimen Vitals/I&O/Wt Last Vital Signs Temp 97.2 F L 07/03/21 18:47 Pulse 62 07/04/21 08:00 Resp 16 07/04/21 08:00 BP 96/52 07/04/21 08:00 Pulse Ox 95 07/04/21 08:00 07/03/21 07/04/21 07/04/21 22:59 06:59 14:59 Intake Total 753.75 / 2511.25 50 / 2561.25 240 / 240 Balance 753.75 / 2311.25 50 / 2361.25 240 / 240 Weight last 48 hrs Weight 127.006 kg Physical Exam Narrative: Patient is pleasant and cooperative Was complaining of back and neck pain No active signs of meningitis Clinically looks dehydrated Awake and alert Answer my question appropriately Nonfocal neuro exam Squint present Lethargic and fatigued Abdomen is soft, distended, nontender No signs of peritonitis, bowel sound present S1, S2 No signs of edema of legs Data : 07/04/21 04:24 07/04/21 04:24 Micro: Microbiology 07/03/21 14:50 C.difficile Toxin B Gene (PCR) - Final Stool Routine Collection 07/02/21 22:45 Enteric Pathogens (PCR) - Final Stool Routine Collection Parasite Antigen Panel - Final A&P Assessment and plan (1) Acute kidney injury superimposed on chronic kidney disease: Status: Acute (2) Colitis: Status: Acute (3) Hx of essential hypertension: Status: Acute (4) Hx of cardiac pacemaker: Status: Acute (5) Hx of congestive heart failure: Status: Acute (6) Chronic kidney disease: Status: Acute Qualifiers: Chronic kidney disease stage: stage 3 (moderate) Chronic kidney disease stage 3 subtype: stage 3b (GFR 30-44) Qualified Code(s): N18.32 - Chronic kidney disease, stage 3b (7) Hyperparathyroidism: Status: Acute Plan Delirium with underlying dementia: Improved Likely related to hypercalcemia, primary hyperparathyroidism(old diagnosis),check vitamin D level For primary hyperparathyroidism she will need outpatient Dr. Stanton appointment, I have started calcitonin today TSH is normal No signs of urine Colitis: Improving Plan to switch to p.o. antibiotics by tomorrow Hypotension related to dehydration, continue IV fluids, held and hypertensive, discontinue hydralazine, hold Coreg She is not septic, clinically she is dry Heart rate in 60s, Awake and alert much more cooperative today as compared to yesterday C. difficile negative Stool panel is negative Awaiting placement, Hypokalemia: She is getting daily potassium 40 mEq Magnesium 1.8, will replenish Acute on chronic kidney disease: Creatinine stable at 3.0, urine output has not been calculated accurately Attestations Medical Necessity Statement*: Awaiting placement Time Spent in Patient Care: 30min Coding Level of Care Code Acute Barrel Repairer for [facility] Fwd Diagnoses Acute kidney injury superimposed on chronic kidney disease N17.9; N18.9 Colitis K52.9 Hx of essential hypertension Z86.79 Hx of cardiac pacemaker Z95.0 Hx of congestive heart failure Z86.79 Chronic kidney disease N18.32 Chronic kidney disease stage: stage 3 (moderate) Chronic kidney disease stage 3 subtype: stage 3b (GFR 30-44) Hyperparathyroidism E21.3
[2021-07-04 11:49] LABS: 25 Hydroxy Vitamin D 23 ng/mL (30-100)
[2021-07-04 16:58] LABS: Glucose Point of Care 141 mg/dL (70-110)
[2021-07-04] MEDS: insulin lispro 100 unit/1 mL SUBCUT (17:34)
[2021-07-04] MEDS: magnesium oxide 400 mg tablet PO (17:34)
[2021-07-04 19:46] LABS: Glucose Point of Care 70 mg/dL (70-110)
[2021-07-04] MEDS: sodium chloride 0.9% 1,000 ML 75 ML IV (21:50)
--- NOTE | 2021-07-04 21:59 | PC.NURSE ---
Pt refuses to wear blood pressure cuff. Hisses at nursing staff. She removed IV. New IV inserted.
[2021-07-05] VITALS (11 sets, daily range): BP systolic 106–135; BP diastolic 43–85; PULSE 61–79; RESP 12–71; TEMP 36.5–36.8; O2SAT 91–98
[2021-07-05 01:16] LABS: Glucose Point of Care 93 mg/dL (70-110)
--- NOTE | 2021-07-05 01:23 | PC.NURSE ---
Small amount of vaginal bleeding noted. No direct source identified.
[2021-07-05 04:47] LABS: Basophils # 0.1 10^3/uL (0.0-0.1); Basophils % 0.6 %; Eosinophils # 0.1 10^3/uL (0.0-0.8); Hemoglobin 11.3 g/dL (11.5-15.3); Lymphocytes # 1.8 10^3/uL (0.8-4.8); Lymphocytes % 17.7 %; Mean Corpuscular HGB Conc 31.4 g/dL (30.0-36.0); Mean Corpuscular Hemoglobin 29.5 pg (28.0-34.0); Mean Platelet Volume 10.8 fL (7.4-10.4); Monocytes % 9.7 %; Neutrophils # 7.03 10^3/uL (1.8-7.7); Neutrophils % 70.7 %; Nucleated Red Blood Cells % 0 %; Platelet Count 164 10^3/cmm (130-400); Red Blood Count 3.83 10^6/uL (4.1-5.3); Red Cell Distribution Width 14.1 % (12.1-15.1)
[2021-07-05 05:10] LABS: Anion Gap 14.7 (5-19); Calcium 10.2 mg/dL (8.5-10.5); Carbon Dioxide 21 mmol/L (22-29); Chloride 110 mmol/L (98-107); Glucose 96 mg/dL (65-115); Osmolality Calculated 320 mOsm/kg (285-295); Potassium 3.7 mmol/L (3.5-5.1); Sodium 142 mmol/L (136-145)
[2021-07-05 05:24] LABS: Blood Urea Nitrogen 86 mg/dL (8-23)
[2021-07-05 07:39] LABS: Glucose Point of Care 109 mg/dL (70-110)
[2021-07-05] MEDS: aspirin 81 mg EC Tablet PO (09:49)
[2021-07-05] MEDS: atorvastatin 40 mg Tablet PO (09:49)
[2021-07-05] MEDS: levothyroxine 25 mcg Tablet PO (09:49)
[2021-07-05] MEDS: magnesium oxide 400 mg tablet PO ×2 (09:49→17:27)
--- NOTE | 2021-07-05 10:50 | P.DS_ITS ---
Discharge Providers Date of Admission: 07/02/21 17:37 Date of Discharge: July 05, 2021 Attending Provider at Admission: Roc Reagan MD Attending Provider at Discharge: Roc Reagan MD Primary Care Provider: Blanca Cantor MD Diagnoses at Discharge Discharge Diagnosis (1) Acute kidney injury superimposed on chronic kidney disease: Status: Acute (2) Colitis: Status: Acute (3) Hx of essential hypertension: Status: Acute (4) Hx of cardiac pacemaker: Status: Acute (5) Hx of congestive heart failure: Status: Acute (6) Chronic kidney disease: Status: Acute Qualifiers: Chronic kidney disease stage: stage 3 (moderate) Chronic kidney disease stage 3 subtype: stage 3b (GFR 30-44) Qualified Code(s): N18.32 - Chronic kidney disease, stage 3b (7) Hyperparathyroidism: Status: Acute Reason for Visit Reason for Visit: N/V/D/ ABDOMINAL PAIN Hospital Course Hospital Course Admitting note by myself Anya Powell is a 80 year old female post having that she is not sure about why she was sent to the hospital.? I called her daughter to get the report.? Daughter stating that she moved in 2 years ago and she is not sure about her previous medical history other than that that she has a pacemaker.? Daughter is stating that for last 6 months she has been declining gradually, she has been suffering from memory loss, sometimes the house she wants to know where the bathroom is, lately she has been just staying in her couch and would defecate and urinate there.? She is losing motivation to get up.? She is mostly watching television in the TV lounge.? She has not complained of any chest pain shortness of breath, fever or diarrhea.? Lately she is complaining of abdominal pain.? She has suffered from recurrent falls as well, her daughter and son-in-law was helping her out for most of the time in order to motivate her to ambulate.? She still debilitated and deconditioned now they have to use a wheelchair to assist her.? Her brother is suffering from dementia.? Daughter stating that she does not have any living will however should be treated as full code.? In the ER diagnostics showed dehydration, acute on chronic kidney disease, I have requested CT head, B12, TSH, urinalysis, started Zosyn for colitis Hospital course Patient was admitted for management and evaluation of hypoactive delirium. She was diagnosed with hypercalcemia related to hyperparathyroidism. Her mentation and mood improved with improvement in calcium she was given calcitonin along with IV fluids. Her colitis improved. Delirium resolved. Daughter is not able to take care of her anymore, recommended short-term rehab. Physical Exam Narrative: Patient is pleasant and cooperative Clinically looks well rested, awake and alert Answer my question appropriately Nonfocal neuro exam Squint present Abdomen is soft, distended, nontender No signs of peritonitis, bowel sound present S1, S2 No signs of edema of legs Urinary Catheter Management: Cardenas: Cath Placed During This Visit: yes Reason for Continuing Indwelling Catheter: Other Urinary Catheter Date of Insertion: 07/04/21 Urinary Catheter Time of Insertion: 13:31 Discharge Data Studies Completed and Pending Completed Studies During Hospitalization Category Date Time Status CT abdomen pelvis wo con [id number] Urgent Cat Scan 07/02/21 11:[address] head wo con* [id number] Routine Cat Scan 07/02/21 19:02 Completed Radiology Impressions Abdomen/Pelvis CT 07/02/21 11:40 IMPRESSION: 1. Moderate diverticulosis involving the distal colon. There are a few areas of very mild pericolonic inflammation which may be related to early acute or chronic inflammation. Very early acute diverticulitis in the distal colon not excluded. 2. Cholelithiasis without acute cholecystitis. 3. Cardiomegaly. 4. Normal appendix. 5. Widened SI joints with erosions. Consider sacroiliitis causes such as 1psoriatic arthritis. 6. Atrophic kidneys with bilateral low-attenuation masses which are probably cysts but cannot be further characterized on this unenhanced exam. Head CT 07/02/21 19:02 IMPRESSION: 1. No acute intracranial abnormality. 2. Moderate diffuse cerebral atrophy and sequela of chronic small vessel ischemic disease. Laboratory Results WBC 10.0 10^3/uL (4.0-10.0) 07/05/21 04:12 Corrected WBC Cancelled 07/03/21 03:48 RBC 3.83 10^6/uL (4.1-5.3) L 07/05/21 04:12 Hgb 11.3 g/dL (11.5-15.3) L 07/05/21 04:12 Hct 36.0 % (37.0-47.0) L 07/05/21 04:12 MCV 94.0 fl (81-99) 07/05/21 04:12 MCH 29.5 pg (28.0-34.0) 07/05/21 04:12 MCHC 31.4 g/dL (30.0-36.0) 07/05/21 04:12 RDW 14.1 % (12.1-15.1) 07/05/21 04:12 Plt Count 164 10^3/cmm (130-400) 07/05/21 04:12 MPV 10.8 fL (7.4-10.4) H 07/05/21 04:12 Gran % Cancelled 07/03/21 03:48 Neut % (Auto) 70.7 % 07/05/21 04:12 Lymph % (Auto) 17.7 % 07/05/21 04:12 [place] % (Auto) 9.7 % 07/05/21 04:12 Eos % (Auto) 1.0 % 07/05/21 04:12 Baso % (Auto) 0.6 % 07/05/21 04:12 Neut # (Auto) 7.03 10^3/uL (1.8-7.7) 07/05/21 04:12 Lymph # (Auto) 1.8 10^3/uL (0.8-4.8) 07/05/21 04:12 [place] # (Auto) 1.0 10^3/uL (0.2-0.9) H 07/05/21 04:12 Eos # (Auto) 0.1 10^3/uL (0.0-0.8) 07/05/21 04:12 Baso # (Auto) 0.1 10^3/uL (0.0-0.1) 07/05/21 04:12 Absolute Gran (auto) Cancelled 07/03/21 03:48 Nucleated RBC % (auto) 0 % 07/05/21 04:12 Nucleated RBCs # 0.0 /100WBC 07/05/21 04:12 Sodium 142 mmol/L (136-145) 07/05/21 04:12 Potassium 3.7 mmol/L (3.5-5.1) 07/05/21 04:12 Chloride 110 mmol/L (98-107) H 07/05/21 04:12 Carbon Dioxide 21 mmol/L (22-29) L 07/05/21 04:12 Anion Gap 14.7 (5-19) 07/05/21 04:12 BUN 86 mg/dL (8-23) H* 07/05/21 04:12 Creatinine 2.6 mg/dL (0.5-0.9) H 07/05/21 04:12 GFR Calculation Not Reportable 07/05/21 04:12 Glucose 96 mg/dL (65-115) 07/05/21 04:12 POC Glucose 109 mg/dL (70-110) 07/05/21 07:34 Calculated Osmolality 320 mOsm/kg (285-295) H 07/05/21 04:12 Calcium 10.2 mg/dL (8.5-10.5) 07/05/21 04:12 Magnesium 1.8 mg/dL (1.7-2.3) 07/04/21 04:24 Total Bilirubin 0.6 mg/dL (0.15-1.2) 07/02/21 10:48 AST 23 U/L (0-32) 07/02/21 10:48 ALT 21 U/L (0-33) 07/02/21 10:48 Alkaline Phosphatase 135 IU/L (35-105) H 07/02/21 10:48 Troponin T Baseline 65 ng/L (0-10) H 07/02/21 10:48 Troponin T 120 Minute 66.64 ng/L (0-10) H 07/02/21 12:55 Delta Troponin T 1.64 ABS# (0-10) 07/02/21 12:55 Troponin T Hi Sens 6Hr 79.92 ng/L (0-10) H 07/02/21 16:50 Troponin T Hi Sens 6Hr Delta 14.92 ng/L (0-12) H* 07/02/21 16:50 C-Reactive Protein 9.6 mg/L (0.0-4.9) H 07/03/21 05:30 Total Protein 6.8 g/dL (6.6-8.7) 07/02/21 10:48 Albumin 3.8 g/dL (3.5-5.2) 07/02/21 10:48 Globulin 3.0 g/dL (1.3-4.6) 07/02/21 10:48 Lipase 97 U/L (13-60) H 07/02/21 10:48 Vitamin B12 978 pg/mL (232-1245) 07/02/21 16:50 25-OH Vitamin D Total 23 ng/mL (30-100) L 07/04/21 04:24 TSH 1.70 uIU/mL (0.27-4.20) 07/02/21 16:50 PTH Intact 532.7 pg/mL (15-65) H 07/03/21 10:48 Calcium (PTH Intact) 12.0 mg/dL (8.5-10.5) H 07/03/21 10:48 Urine Color Yellow (Yellow) 07/02/21 22:45 Urine Appearance Sl cloudy (CLEAR) A 07/02/21 22:45 Urine pH 5 (5-7) 07/02/21 22:45 Ur Specific [place] 1.020 (1.005-1.030) 07/02/21 22:45 Urine Protein 1+ (Negative) H 07/02/21 22:45 Urine Glucose (UA) Norm (Normal) 07/02/21 22:45 Urine Ketones Negative (Negative) 07/02/21 22:45 Urine Blood 3+ (Negative) H 07/02/21 22:45 Urine Nitrate Negative (Negative) 07/02/21 22:45 Urine Bilirubin 1+ (Negative) H 07/02/21 22:45 Urine Urobilinogen Norm mg/dL (Negative) 07/02/21 22:45 Ur Leukocyte Esterase 1+ (Negative) H 07/02/21 22:45 Urine RBC Rare /hpf (0-2) 07/02/21 14:20 Urine WBC Rare /hpf (0-5) 07/02/21 14:20 Ur Squamous Epith Cells 5-10 /hpf (0-5) H 07/02/21 14:20 Amorphous Sediment Not Reportable 07/02/21 14:20 Urine Bacteria Trace /hpf (NONE) 07/02/21 14:20 Urine Mucus 2+ /hpf 07/02/21 14:20 Vitals Last Vital Signs Temp 97.7 F 07/05/21 07:30 Pulse 87 07/05/21 08:30 Resp 18 07/05/21 08:30 BP 113/85 07/05/21 07:30 Pulse Ox 94 04/04/22 08:30 Discharge Plan Discharge Patient Disposition: Home Condition: Stable Prescriptions: No Action aspirin [Adult Aspirin Regimen] 81 mg tablet,delayed release (DR/EC) 81 mg PO DAILY Qty: 90 3RF furosemide 40 mg tablet 40 mg PO BID Qty: 180 3RF potassium chloride 20 mEq tablet,ER particles/crystals 20 meq PO DAILY 0RF levothyroxine 25 mcg tablet 25 mcg PO DAILY Qty: 90 3RF atorvastatin 40 mg tablet 40 mg PO DAILY Qty: 100 3RF hydralazine 10 mg tablet 10 mg PO TID Qty: 300 3RF carvedilol 25 mg tablet 25 mg PO BID Qty: 200 3RF Rx Instructions: must administer with a meal/food hydrochlorothiazide 25 mg tablet 25 mg PO DAILY Qty: 100 3RF Referrals: Blanca Cantor MD [Primary Care Provider] - Patient Instructions: Opioid Safety Coding Level of Care Code Acute Chg FW DC note Diagnoses Acute kidney injury superimposed on chronic kidney disease N17.9; N18.9 Colitis K52.9 Hx of essential hypertension Z86.79 Hx of cardiac pacemaker Z95.0 Hx of congestive heart failure Z86.79 Chronic kidney disease N18.32 Chronic kidney disease stage: stage 3 (moderate) Chronic kidney disease stage 3 subtype: stage 3b (GFR 30-44) Hyperparathyroidism E21.3
--- NOTE | 2021-07-05 11:14 | PM.PN ---
Subjective Subjective: Patient pleasant cooperative Mentation improved Calcium is improved Received calcitonin yesterday Adequate urine output Headache has improved as well Patient is in good mood today Vitals/I&O/Wt Last Vital Signs Temp 97.7 F 07/05/21 07:30 Pulse 87 07/05/21 08:30 Resp 18 07/05/21 08:30 BP 113/85 07/05/21 07:30 Pulse Ox 94 07/05/21 08:30 07/04/21 07/05/21 07/05/21 22:59 06:59 14:59 Intake Total 360 / 890 656.25 / 1546.25 Output Total 351 / 351 600 / 951 Balance 9 / 539 56.25 / 595.25 Physical Exam Narrative: Very pleasant cooperative Nonfocal neuro exam In good spirits S1, S2 Signs of dehydration improved Soft abdomen Nonfocal neuro exam Comfortable in her bed No signs of edema Urinary Catheter Management: Cardenas: Cath Placed During This Visit: yes Reason for Continuing Indwelling Catheter: Other Urinary Catheter Date of Insertion: 07/04/21 Urinary Catheter Time of Insertion: 13:31 Data : 07/05/21 04:12 07/05/21 04:12 A&P Assessment and plan (1) Acute kidney injury superimposed on chronic kidney disease: Status: Acute (2) Colitis: Status: Acute (3) Hx of essential hypertension: Status: Acute (4) Hx of congestive heart failure: Status: Acute (5) Hx of cardiac pacemaker: Status: Acute (6) Chronic kidney disease: Status: Acute Qualifiers: Chronic kidney disease stage: stage 3 (moderate) Chronic kidney disease stage 3 subtype: stage 3b (GFR 30-44) Qualified Code(s): N18.32 - Chronic kidney disease, stage 3b (7) Hyperparathyroidism: Status: Acute Plan Acute on chronic kidney disease: Improving with IV fluid hydration Adequate urine output Hypercalcemia: Improved Received calcitonin yesterday Will need outpatient follow-up Awaiting placement Hemodynamically stable Full code Continue IV fluid at 75 mL/h Attestations Medical Necessity Statement*: Awaiting placement Time Spent in Patient Care: 10min Coding Level of Care Code Acute Senior Publications Specialist for [facility] Fwd Diagnoses Acute kidney injury superimposed on chronic kidney disease N17.9; N18.9 Colitis K52.9 Hx of essential hypertension Z86.79 Hx of congestive heart failure Z86.79 Hx of cardiac pacemaker Z95.0 Chronic kidney disease N18.32 Chronic kidney disease stage: stage 3 (moderate) Chronic kidney disease stage 3 subtype: stage 3b (GFR 30-44) Hyperparathyroidism E21.3
[2021-07-05] MEDS: piperacillin-tazobactam 3.375 GM in sodium chloride 0.9% (plus) 50 ML IV (11:47)
[2021-07-05] MEDS: calcitonin,salmon 200 unit/mL SDV 2mL 300 UNIT SUBCUT ×2 (11:47→22:16)
[2021-07-05 12:04] LABS: Glucose Point of Care 95 mg/dL (70-110)
--- NOTE | 2021-07-05 14:03 | PC.NURSE ---
Patient transferred from CSU. Patient AAO to person. Patient has shah in place with noticeable vaginal bleeding. Patients linens were changed upon arrival to floor. Will continue plan of care. Bed locked and in lowest position. Call light and personal items in reach.
--- NOTE | 2021-07-05 14:55 | PC.SOCIAL ---
IMM Update pg 2 of IMM updated and reviewed w/ patient. Copy provided and copy placed in chart.
[2021-07-05 17:05] LABS: Glucose Point of Care 102 mg/dL (70-110)
[2021-07-05 20:51] LABS: Glucose Point of Care 101 mg/dL (70-110)
[2021-07-05] MEDS: sodium chloride 0.9% 1,000 ML 75 ML IV (22:20)
[2021-07-06] VITALS (8 sets, daily range): BP systolic 115–126; BP diastolic 59–74; PULSE 62–72; RESP 16–18; TEMP 36.2–37.2; O2SAT 92–97
[2021-07-06 06:18] LABS: Glucose Point of Care 99 mg/dL (70-110)
[2021-07-06 08:19] LABS: Anion Gap 14.6 (5-19); Blood Urea Nitrogen 64 mg/dL (8-23); Calcium 10.6 mg/dL (8.5-10.5); Carbon Dioxide 21 mmol/L (22-29); Chloride 109 mmol/L (98-107); Glucose 94 mg/dL (65-115); Osmolality Calculated 310 mOsm/kg (285-295); Potassium 3.6 mmol/L (3.5-5.1); Sodium 141 mmol/L (136-145)
[2021-07-06] MEDS: levothyroxine 25 mcg Tablet PO (08:40)
[2021-07-06] MEDS: aspirin 81 mg EC Tablet PO (08:40)
[2021-07-06] MEDS: atorvastatin 40 mg Tablet PO (08:40)
[2021-07-06] MEDS: magnesium oxide 400 mg tablet PO ×2 (08:40→17:54)
--- NOTE | 2021-07-06 08:50 | US_ITS ---
WS: [id number] TRANSABDOMINAL PELVIC ULTRASOUND HISTORY: vaginal bleeding COMPARISON: None available. Uterus: 10.3 cm x 4.6 cm x 4.1 cm. Moderately enlarged uterus. Uterus is heterogeneous. Lobulated shahab earance of the cortex may be fibroids. Endometrium: 1.7 cm. Abnormally thickened endometrium. There are a few scattered cystic areas through out the endometrium. Junctional zone is obliterated. Neither ovary is identified. No adnexal masses. No free fluid. US/US pelvic complete* [id number] IMPRESSION: 1. Abnormal endometrium. Thickened endometrium with a few scattered cystic are as. Endometrial neoplasm needs to be considered as an possible etiology. Recomm end hysteroscopy and direct visualization for further evaluate if necessary. 2. Enlarged heterogeneous uterus. 3. Neither ovary identified.
--- NOTE | 2021-07-06 08:51 | PC.NURSE ---
Dr Reagan in room while patient was having a bath. Bleeding was observed to be coming from patients vagina. A order for a transvaginal US was placed.
--- NOTE | 2021-07-06 09:46 | PC.CHAP ---
Pastoral Care Encounter/Spiritual Assessment Type of Contact [] Declined ict support and test engineers visit [] Patient/Family/Request visit [] Outpatient visit [] Follow-up visit [] Physician referral [] Code/Alert [x] Routine visit [] Staff referral [] Actively dying [] Patient sleeping [] Family support [] [] Out of room [] Palliative care [] [] Receiving care in room [] Pre-surgical visit [] Trauma [] Long length of stay [] ICU visit [] Other: Relational/Emotional Strength [x] Patient feels connected with others/family/visitors/staff [] Distress [] Loneliness/isolation [] Abandonment Spirituality of Patient [x] Person of Crystal [] Attends [employer] of their Crystal [x] Believes in Prayer [] Reads Bible or Confucianist materials [] There are Spiritual issues to be addressed Certified Court/Medical Interpreter Interventions [x] Prayer [x] Active listening [x] Non-anxious presence [x] Spiritual/emotional support [] Crisis/trauma care [] Spiritual counseling [] Bereavement support [] Provided bereavement packet [] Provided Bible/devotional materials [] Provided toy/stuffed animal, coloring book to patient or family member [] Provided Communion [] Anointing/[place] [] Salvation [x] Completed spiritual assessment [] Other: Impact on Illness or Injury [] Angry [] Fearful [] Anxious [] Often cries [] Exhaustion [] Unable to work [] Unable to attend religious [] Unable to walk/stand [] Unable to read [] Unable to drive [] Unable to eat/drink [] Unable to sleep [] Unable to be with family [] Patient intubated [] Other: Summary Pt was sitting on edge of bed. Complained she was cold. Certified Court/Medical Interpreter found blanket and placed over her. Pt asked ict support and test engineers to rub her back so ict support and test engineers did. Pt lives with daughter in area. She has four grown grandchildren. Pt said she is a person of crystal on Sundays . She agreed to prayer. Time spent with patient 15m
[2021-07-06] MEDS: calcitonin,salmon 200 unit/mL SDV 2mL 300 UNIT SUBCUT ×2 (10:55→21:17)
--- NOTE | 2021-07-06 11:36 | PM.PN ---
Subjective Subjective: Patient has been transferred to [facility], transvaginal bleeding noted, I have requested a vaginal ultrasound Calcium 10.6 No overnight events Hemodynamically stable We will request H&H Vitals/I&O/Wt Last Vital Signs Temp 97.8 F 07/06/21 07:23 Pulse 63 07/06/21 07:38 Resp 17 07/06/21 07:38 BP 123/74 07/06/21 07:23 Pulse Ox 97 07/06/21 07:38 07/05/21 07/06/21 07/06/21 22:59 06:59 14:59 Intake Total 240 / 240 360 / 360 Output Total 950 / 1570 Balance 240 / -380 -950 / -1330 360 / 360 Physical Exam Narrative: Pleasant cooperative female Nonfocal neuro exam Signs of dehydration: Improving No abdominal pain No skin ulcers Vaginal bleeding noted Cardenas catheter with yellow-colored urine Nonfocal neuro exam Saturating well on room air S1, S2 Urinary Catheter Management: Cardenas: Cath Placed During This Visit: yes Reason for Continuing Indwelling Catheter: Accurate Measurement of Urinary Output in Critically Ill Patients Urinary Catheter Date of Insertion: 07/04/21 Urinary Catheter Time of Insertion: 13:31 Data : 07/05/21 04:12 07/06/21 07:41 A&P Assessment and plan (1) Acute kidney injury superimposed on chronic kidney disease: Status: Acute (2) Colitis: Status: Acute (3) Hx of essential hypertension: Status: Acute (4) Hx of congestive heart failure: Status: Acute (5) Hx of cardiac pacemaker: Status: Acute (6) Chronic kidney disease: Status: Acute Qualifiers: Chronic kidney disease stage: stage 3 (moderate) Chronic kidney disease stage 3 subtype: stage 3b (GFR 30-44) Qualified Code(s): N18.32 - Chronic kidney disease, stage 3b (7) Hyperparathyroidism: Status: Acute (8) Vaginal bleeding: Status: Acute Plan Patient is awaiting placement Hypercalcemia related to primary hypothyroidism improved Continue IV fluids YUNG related to dehydration improved Transvaginal bleeding, requested vaginal ultrasound, postmenopausal bleeding will need AIRPLANE PILOT SUPERVISOR follow-up outpatient, check CBC she has been hemodynamically stable Metabolic encephalopathy related to hypercalcemia and dehydration: Improved Colitis: Improved Antibiotics discontinued Continue calcitonin Continue levothyroxine Daughter updated Attestations Medical Necessity Statement*: Awaiting placement Time Spent in Patient Care: 20mins Coding Level of Care Code Acute Business Intelligence Analyst for [facility] Fwd Diagnoses Acute kidney injury superimposed on chronic kidney disease N17.9; N18.9 Colitis K52.9 Hx of essential hypertension Z86.79 Hx of congestive heart failure Z86.79 Hx of cardiac pacemaker Z95.0 Chronic kidney disease N18.32 Chronic kidney disease stage: stage 3 (moderate) Chronic kidney disease stage 3 subtype: stage 3b (GFR 30-44) Hyperparathyroidism E21.3 Vaginal bleeding N93.9
[2021-07-06 11:47] LABS: Glucose Point of Care 100 mg/dL (70-110)
[2021-07-06 17:20] LABS: Glucose Point of Care 91 mg/dL (70-110)
[2021-07-06 21:20] LABS: Glucose Point of Care 88 mg/dL (70-110)
[2021-07-07] VITALS (9 sets, daily range): BP systolic 106–125; BP diastolic 53–71; PULSE 62–97; RESP 12–17; TEMP 36.8; O2SAT 94–96
[2021-07-07 06:14] LABS: Glucose Point of Care 76 mg/dL (70-110)
--- NOTE | 2021-07-07 06:16 | PC.NURSE ---
PATIENT ENCOURAGED TO GET UP TO CHAIR FOR BREAKFAST, PATIENT REFUSED AT THIS TIME.
[2021-07-07] MEDS: atorvastatin 40 mg Tablet PO (08:24)
[2021-07-07] MEDS: magnesium oxide 400 mg tablet PO (08:24)
[2021-07-07] MEDS: levothyroxine 25 mcg Tablet PO (08:24)
[2021-07-07] MEDS: aspirin 81 mg EC Tablet PO (08:24)
[2021-07-07 09:28] LABS: Basophils # 0.1 10^3/uL (0.0-0.1); Basophils % 0.5 %; Eosinophils # 0.1 10^3/uL (0.0-0.8); Eosinophils % 1.3 %; Hematocrit 43.2 % (37.0-47.0); Lymphocytes # 1.9 10^3/uL (0.8-4.8); Lymphocytes % 20.9 %; Mean Corpuscular HGB Conc 30.1 g/dL (30.0-36.0); Mean Corpuscular Volume 96.2 fl (81-99); Mean Platelet Volume 10.4 fL (7.4-10.4); Monocytes # 0.6 10^3/uL (0.2-0.9); Monocytes % 6.2 %; Neutrophils # 6.44 10^3/uL (1.8-7.7); Neutrophils % 70.6 %; Nucleated Red Blood Cells % 0 %; Platelet Count 207 10^3/cmm (130-400); Red Blood Count 4.49 10^6/uL (4.1-5.3); Red Cell Distribution Width 14.4 % (12.1-15.1); White Blood Count 9.1 10^3/uL (4.0-10.0)
[2021-07-07 09:51] LABS: Anion Gap 17.8 (5-19); Blood Urea Nitrogen 53 mg/dL (8-23); Calcium 11.2 mg/dL (8.5-10.5); Carbon Dioxide 17 mmol/L (22-29); Chloride 104 mmol/L (98-107); Glucose 166 mg/dL (65-115); Osmolality Calculated 298 mOsm/kg (285-295); Potassium 3.8 mmol/L (3.5-5.1); Sodium 135 mmol/L (136-145)
--- NOTE | 2021-07-07 10:47 | PC.SOCIAL ---
IMM update Pg. 2 of IMM updated and reviewed with patient, who verbalized understanding. Copy provided.
--- NOTE | 2021-07-07 11:08 | PM.PN ---
Subjective Subjective: Pelvic ultrasound which showed thickened endometrium concerning for postmenopausal bleeding related to possible underlying cancer I conveyed my concerns and findings to her daughter, daughter has contacted [facility], she is planning for hospice at home and does not want to pursue any histopathological diagnosis or treatment for her This morning hemoglobin is 13, creatinine is improving with IV fluid hydration, I have updated renal case manager I am planning to discharge her tomorrow as hospice will deliver hospital bed and accessories at home by tomorrow Vitals/I&O/Wt Last Vital Signs Temp 98.2 F 07/07/21 04:00 Pulse 97 07/07/21 08:32 Resp 16 07/07/21 08:32 BP 106/53 07/07/21 07:41 Pulse Ox 96 07/07/21 08:32 07/06/21 07/07/21 07/07/21 22:59 06:59 14:59 Intake Total 460 / 1060 Output Total 900 / 900 0 / 900 Balance -900 / -300 460 / 160 Weight last 48 hrs Weight 122.107 kg Physical Exam Narrative: Patient is awake and alert Hemodynamically stable No active bleeding She was sitting at the bedside Cardenas catheter with dilute urine Adequate urine output Distended abdomen Nontender EOMI: PERRLA Pleasant to communicate Breathing well on room air S1, S2 Urinary Catheter Management: Cardenas: Cath Placed During This Visit: yes Reason for Continuing Indwelling Catheter: Accurate Measurement of Urinary Output in Critically Ill Patients Urinary Catheter Date of Insertion: 07/04/21 Urinary Catheter Time of Insertion: 13:31 Data : 07/07/21 09:10 07/07/21 09:10 A&P Assessment and plan (1) Vaginal bleeding: Status: Acute (2) Acute kidney injury superimposed on chronic kidney disease: Status: Acute (3) Colitis: Status: Acute (4) Hx of essential hypertension: Status: Acute (5) Hx of congestive heart failure: Status: Acute (6) Hx of cardiac pacemaker: Status: Acute (7) Chronic kidney disease: Status: Acute Qualifiers: Chronic kidney disease stage: stage 3 (moderate) Chronic kidney disease stage 3 subtype: stage 3b (GFR 30-44) Qualified Code(s): N18.32 - Chronic kidney disease, stage 3b (8) Hyperparathyroidism: Status: Acute Plan Postmenopausal vaginal bleeding, vaginal ultrasound probably consistent with endometrial cancer, daughter does not want to pursue histopathological diagnosis or treatment, Patient's delirium and encephalopathy related to hypercalcemia has improved blood, her mentation is waxing and waning, daughter is leaning towards home hospice, she has already contacted home hospice company system administration manager updated YUNG related to dehydration: Improving with IV fluid hydration Patient will be discharged tomorrow system administration manager and family updated Hemoglobin is stable Cardiac con carb diet Hyperparathyroidism, hypercalcemia, discontinue calcitonin, Attestations Medical Necessity Statement*: Discharge home tomorrow Time Spent in Patient Care: 20mins Coding Level of Care Code Acute Automotive Service Professional for [facility] Fwd Diagnoses Vaginal bleeding N93.9 Acute kidney injury superimposed on chronic kidney disease N17.9; N18.9 Colitis K52.9 Hx of essential hypertension Z86.79 Hx of congestive heart failure Z86.79 Hx of cardiac pacemaker Z95.0 Chronic kidney disease N18.32 Chronic kidney disease stage: stage 3 (moderate) Chronic kidney disease stage 3 subtype: stage 3b (GFR 30-44) Hyperparathyroidism E21.3
[2021-07-07 11:12] LABS: Glucose Point of Care 118 mg/dL (70-110)
[2021-07-07 20:42] LABS: Glucose Point of Care 123 mg/dL (70-110)
[2021-07-08] VITALS: BP 104/67; PULSE 71; RESP 16; TEMP 36.7; O2SAT 95
[2021-07-08 04:00] VITALS: BP 141/83; PULSE 68; RESP 16; TEMP 36.5; O2SAT 96
[2021-07-08 06:18] LABS: Glucose Point of Care 86 mg/dL (70-110)
[2021-07-08 08:00] VITALS: BP 97/55; PULSE 67; RESP 12; TEMP 36.6; O2SAT 96
[2021-07-08] MEDS: aspirin 81 mg EC Tablet PO (08:13)
[2021-07-08] MEDS: levothyroxine 25 mcg Tablet PO (08:13)
[2021-07-08] MEDS: atorvastatin 40 mg Tablet PO (08:13)
[2021-07-08 08:43] VITALS: PULSE 72; RESP 18; O2SAT 98
--- NOTE | 2021-07-08 09:31 | PM.DCS ---
Discharge Providers Date of Admission: 07/02/21 17:37 Date of Discharge: July 08, 2021 Attending Provider at Admission: Roc Reagan MD Attending Provider at Discharge: Roc Reagan MD Primary Care Provider: Blanca Cantor MD Diagnoses at Discharge Discharge Diagnosis (1) Vaginal bleeding: Status: Acute (2) Acute kidney injury superimposed on chronic kidney disease: Status: Acute (3) Colitis: Status: Acute (4) Hx of essential hypertension: Status: Acute (5) Hx of congestive heart failure: Status: Acute (6) Hx of cardiac pacemaker: Status: Acute (7) Chronic kidney disease: Status: Acute Qualifiers: Chronic kidney disease stage: stage 3 (moderate) Chronic kidney disease stage 3 subtype: stage 3b (GFR 30-44) Qualified Code(s): N18.32 - Chronic kidney disease, stage 3b (8) Hyperparathyroidism: Status: Acute Reason for Visit Reason for Visit: N/V/D/ ABDOMINAL PAIN Hospital Course Hospital Course Admitting note by myself Anya Powell is a 80 year old female post having that she is not sure about why she was sent to the hospital.? I called her daughter to get the report.? Daughter stating that she moved in 2 years ago and she is not sure about her previous medical history other than that that she has a pacemaker.? Daughter is stating that for last 6 months she has been declining gradually, she has been suffering from memory loss, sometimes the house she wants to know where the bathroom is, lately she has been just staying in her couch and would defecate and urinate there.? She is losing motivation to get up.? She is mostly watching television in the TV lounge.? She has not complained of any chest pain shortness of breath, fever or diarrhea.? Lately she is complaining of abdominal pain.? She has suffered from recurrent falls as well, her daughter and son-in-law was helping her out for most of the time in order to motivate her to ambulate.? She still debilitated and deconditioned now they have to use a wheelchair to assist her.? Her brother is suffering from dementia.? Daughter stating that she does not have any living will however should be treated as full code.? In the ER diagnostics showed dehydration, acute on chronic kidney disease, I have requested CT head, B12, TSH, urinalysis, started Zosyn for colitis Hospital course Patient was admitted for management and evaluation of hypoactive delirium. She was diagnosed with hypercalcemia related to hyperparathyroidism. Her mentation and mood improved with improvement in calcium she was given SC calcitonin along with IV fluids. For her colitis she was treated with IV antibiotics initially which were transitioned to p.o. and then discontinued. Her metabolic encephalopathy also improved with IV fluid hydration. Her hospitalization was notable for vaginal intermittent bleeding, pelvic ultrasound showed concerning thickened endometrial wall. This was discussed with the patient and her daughter. They are leaning towards conservative management and not pursuing aggressive diagnostic or therapeutic options for now. Daughter has been in touch with a home hospice company already([employer]). Her hemoglobin remained stable along her blood pressure. On 07/08 she will be discharged home in stable condition, hospital bed and bedside commode has been arranged by home hospice company. Her opioids, bowel regimen, rest of the medications will be arranged by home hospice. Physical Exam Narrative: Patient is awake and alert Hemodyna mically stable No active bleeding Sh e was laying supin e in her bed Cardenas catheter with dil chasity urine, will be removed at discha rge Adequate urine output Distended abdomen Nontender EOMI: PERRLA Pleas ant to communicate Breathing well on room air S1, S2 Urinary Catheter Management: Cardenas: Cath Placed During This Visit: yes Reason for Continuing Indwelling Catheter: Accurate Measurement of Urinary Output in Critically Ill Patients Urinary Catheter Date of Insertion: 07/04/21 Urinary Catheter Time of Insertion: 13:31 Discharge Data Studies Completed and Pending Completed Studies During Hospitalization Category Date Time Status CT abdomen pelvis wo con [id number] Urgent Cat Scan 07/02/21 11:[address] head wo con* [id number] Routine Cat Scan 07/02/21 19:02 Completed US pelvic complete* [id number] Urgent Ultrasound 07/06/21 08:50 Completed Radiology Impressions Abdomen/Pelvis CT 07/02/21 11:40 IMPRESSION: 1. Moderate diverticulosis involving the distal colon. There are a few areas of very mild pericolonic inflammation which may be related to early acute or chronic inflammation. Very early acute diverticulitis in the distal colon not excluded. 2. Cholelithiasis without acute cholecystitis. 3. Cardiomegaly. 4. Normal appendix. 5. Widened SI joints with erosions. Consider sacroiliitis causes such as 1psoriatic arthritis. 6. Atrophic kidneys with bilateral low-attenuation masses which are probably cysts but cannot be further characterized on this unenhanced exam. Head CT 07/02/21 19:02 IMPRESSION: 1. No acute intracranial abnormality. 2. Moderate diffuse cerebral atrophy and sequela of chronic small vessel ischemic disease. Pelvis Ultrasound 07/06/21 08:50 IMPRESSION: 1. Abnormal endometrium. Thickened endometrium with a few scattered cystic areas. Endometrial neoplasm needs to be considered as an possible etiology. Recommend hysteroscopy and direct visualization for further evaluate if necessary. 2. Enlarged heterogeneous uterus. 3. Neither ovary identified. Laboratory Results WBC 9.1 10^3/uL (4.0-10.0) 07/07/21 09:10 Corrected WBC Cancelled 07/03/21 03:48 RBC 4.49 10^6/uL (4.1-5.3) 07/07/21 09:10 Hgb 13.0 g/dL (11.5-15.3) 07/07/21 09:10 Hct 43.2 % (37.0-47.0) 07/07/21 09:10 MCV 96.2 fl (81-99) 07/07/21 09:10 MCH 29.0 pg (28.0-34.0) 07/07/21 09:10 MCHC 30.1 g/dL (30.0-36.0) 07/07/21 09:10 RDW 14.4 % (12.1-15.1) 07/07/21 09:10 Plt Count 207 10^3/cmm (130-400) 07/07/21 09:10 MPV 10.4 fL (7.4-10.4) 07/07/21 09:10 Gran % Cancelled 07/03/21 03:48 Neut % (Auto) 70.6 % 07/07/21 09:10 Lymph % (Auto) 20.9 % 07/07/21 09:10 [place] % (Auto) 6.2 % 07/07/21 09:10 Eos % (Auto) 1.3 % 07/07/21 09:10 Baso % (Auto) 0.5 % 07/07/21 09:10 Neut # (Auto) 6.44 10^3/uL (1.8-7.7) 07/07/21 09:10 Lymph # (Auto) 1.9 10^3/uL (0.8-4.8) 07/07/21 09:10 [place] # (Auto) 0.6 10^3/uL (0.2-0.9) 07/07/21 09:10 Eos # (Auto) 0.1 10^3/uL (0.0-0.8) 07/07/21 09:10 Baso # (Auto) 0.1 10^3/uL (0.0-0.1) 07/07/21 09:10 Absolute Gran (auto) Cancelled 07/03/21 03:48 Nucleated RBC % (auto) 0 % 07/07/21 09:10 Nucleated RBCs # 0.0 /100WBC 07/07/21 09:10 Sodium 135 mmol/L (136-145) L 07/07/21 09:10 Potassium 3.8 mmol/L (3.5-5.1) 07/07/21 09:10 Chloride 104 mmol/L (98-107) 07/07/21 09:10 Carbon Dioxide 17 mmol/L (22-29) L 07/07/21 09:10 Anion Gap 17.8 (5-19) 07/07/21 09:10 BUN 53 mg/dL (8-23) H 07/07/21 09:10 Creatinine 1.9 mg/dL (0.5-0.9) H 07/07/21 09:10 GFR Calculation Not Reportable 07/07/21 09:10 Glucose 166 mg/dL (65-115) H 07/07/21 09:10 POC Glucose 86 mg/dL (70-110) 07/08/21 06:15 Calculated Osmolality 298 mOsm/kg (285-295) H 07/07/21 09:10 Calcium 11.2 mg/dL (8.5-10.5) H 07/07/21 09:10 Magnesium 1.8 mg/dL (1.7-2.3) 07/04/21 04:24 Total Bilirubin 0.6 mg/dL (0.15-1.2) 07/02/21 10:48 AST 23 U/L (0-32) 07/02/21 10:48 ALT 21 U/L (0-33) 07/02/21 10:48 Alkaline Phosphatase 135 IU/L (35-105) H 07/02/21 10:48 Troponin T Baseline 65 ng/L (0-10) H 07/02/21 10:48 Troponin T 120 Minute 66.64 ng/L (0-10) H 07/02/21 12:55 Delta Troponin T 1.64 ABS# (0-10) 07/02/21 12:55 Troponin T Hi Sens 6Hr 79.92 ng/L (0-10) H 07/02/21 16:50 Troponin T Hi Sens 6Hr Delta 14.92 ng/L (0-12) H* 07/02/21 16:50 C-Reactive Protein 9.6 mg/L (0.0-4.9) H 07/03/21 05:30 Total Protein 6.8 g/dL (6.6-8.7) 07/02/21 10:48 Albumin 3.8 g/dL (3.5-5.2) 07/02/21 10:48 Globulin 3.0 g/dL (1.3-4.6) 07/02/21 10:48 Lipase 97 U/L (13-60) H 07/02/21 10:48 Vitamin B12 978 pg/mL (232-1245) 07/02/21 16:50 25-OH Vitamin D Total 23 ng/mL (30-100) L 07/04/21 04:24 TSH 1.70 uIU/mL (0.27-4.20) 07/02/21 16:50 PTH Intact 532.7 pg/mL (15-65) H 07/03/21 10:48 Calcium (PTH Intact) 12.0 mg/dL (8.5-10.5) H 07/03/21 10:48 Urine Color Yellow (Yellow) 07/02/21 22:45 Urine Appearance Sl cloudy (CLEAR) A 07/02/21 22:45 Urine pH 5 (5-7) 07/02/21 22:45 Ur Specific [place] 1.020 (1.005-1.030) 07/02/21 22:45 Urine Protein 1+ (Negative) H 07/02/21 22:45 Urine Glucose (UA) Norm (Normal) 07/02/21 22:45 Urine Ketones Negative (Negative) 07/02/21 22:45 Urine Blood 3+ (Negative) H 07/02/21 22:45 Urine Nitrate Negative (Negative) 07/02/21 22:45 Urine Bilirubin 1+ (Negative) H 07/02/21 22:45 Urine Urobilinogen Norm mg/dL (Negative) 07/02/21 22:45 Ur Leukocyte Esterase 1+ (Negative) H 07/02/21 22:45 Urine RBC Rare /hpf (0-2) 07/02/21 14:20 Urine WBC Rare /hpf (0-5) 07/02/21 14:20 Ur Squamous Epith Cells 5-10 /hpf (0-5) H 07/02/21 14:20 Amorphous Sediment Not Reportable 07/02/21 14:20 Urine Bacteria Trace /hpf (NONE) 07/02/21 14:20 Urine Mucus 2+ /hpf 07/02/21 14:20 Vitals Last Vital Signs Temp 98 F 07/08/21 08:00 Pulse 72 07/08/21 08:43 Resp 18 07/08/21 08:43 BP 97/55 07/08/21 08:00 Pulse Ox 98 07/08/21 08:43 Discharge Plan Discharge Patient Disposition: Hospice - Home Condition: Stable Prescriptions: Continued levothyroxine 25 mcg tablet 25 mcg PO DAILY Qty: 90 3RF Discontinued aspirin [Adult Aspirin Regimen] 81 mg tablet,delayed release (DR/EC) 81 mg PO DAILY Qty: 90 3RF furosemide 40 mg tablet 40 mg PO BID Qty: 180 3RF potassium chloride 20 mEq tablet,ER particles/crystals 20 meq PO DAILY 0RF atorvastatin 40 mg tablet 40 mg PO DAILY Qty: 100 3RF hydralazine 10 mg tablet 10 mg PO TID Qty: 300 3RF carvedilol 25 mg tablet 25 mg PO BID Qty: 200 3RF Rx Instructions: must administer with a meal/food hydrochlorothiazide 25 mg tablet 25 mg PO DAILY Qty: 100 3RF Discharge Orders: Discharge Order (Routine); Ordered 07/08/21 Ordered By: Roc Reagan Referrals: [facility] [Outside] Blanca Cantor MD [Primary Care Provider] - 07/15/21 11:00 am Discharge Diet: Diabetic Patient Instructions: Heart Attack (DC), Acute Kidney Injury (DC) Discharge Attestations Time Spent in Discharge Care*: less than 30 min Quality Metrics Clinical Quality Measures [ No reported AMI, CVA or VTE this stay] Coding Level of Care Code Acute Chg FW DC note Diagnoses Vaginal bleeding N93.9 Acute kidney injury superimposed on chronic kidney disease N17.9; N18.9 Colitis K52.9 Hx of essential hypertension Z86.79 Hx of congestive heart failure Z86.79 Hx of cardiac pacemaker Z95.0 Chronic kidney disease N18.32 Chronic kidney disease stage: stage 3 (moderate) Chronic kidney disease stage 3 subtype: stage 3b (GFR 30-44) Hyperparathyroidism E21.3
[2021-07-08 12:34] LABS: Glucose Point of Care 103 mg/dL (70-110)
== END 2021-07-08 14:00 | disposition hospice, home (50) | DRG 682 ==
LOC: ER 18:28 → CSU 20:43 → MEDSURG 07-05 13:19
PROVIDERS: Admitting Provider Internal Medicine; Emergency Provider Emergency Medicine; PCP Family Medicine; Visit Provider Internal Medicine
DX: N17.9 Acute kidney failure, unspecified (principal); G93.41 Metabolic encephalopathy; I13.0 Hypertensive heart and chronic kidney disease with heart failure and stage 1 through stage 4 chronic kidney disease, or unspecified chronic kidney disease; E86.0 Dehydration; N18.32 Chronic kidney disease, stage 3b; N93.9 Abnormal uterine and vaginal bleeding, unspecified; K52.9 Noninfective gastroenteritis and colitis, unspecified; Z95.0 Presence of cardiac pacemaker; E83.52 Hypercalcemia; Z91.81 History of falling; I95.9 Hypotension, unspecified; I50.9 Heart failure, unspecified
CPT/HCPCS: 36415; 36416; 51702; 70450; 74176; 76856; 80048; 80053; 81001; 81003; 82306; 82310; 82607; 82962; 83630; 83690; 83735; 83970; 84443; 84484; 85025; 86140; 87493; 87506; 93005; 96365; 96367; 96372; 97110; 97161; 97530; 99285; J0630; J0696; J1815; J2543; J7030; S0030